=== PATIENT | female | born 1965 | race African-American/Black ===

== ENCOUNTER → 2017-07-21 | Outpatient (CLI) | payer MEDICAID ==
[~2017-07-21] MED LIST: AGM875T PO; ALBU8.5H2 IH; AMLO5TAB2 PO; AZIT500T PO; BSP10T PO; BUDE10.22 IH; BUSP15TA60 PO; CHANTIX; CLIN150C17 PO; CYAN5000 SL; CYCL10TA9 PO; DOCU100C37 PO; DOXY100T61 PO; ESTR1TAB18 PO; FAMO20TA5 PO; HYDR-757 PO; IBP800T PO; INDO50CA PO; IPRA3AMP19 IH; LANS30CA PO; LEVO750T6 PO; LRT10T PO; MULT-608 PO; NAPR-1070 PO; NAPR-243 PO; OMEP40CA36 PO; PARO30TA74 PO; POTA10CA43 PO; PRD10T PO; PRD20T PO; PRD50T PO; PRD5T PO; TRAZ150T42 PO; TRIA5PAS10 TOP; VARE1TAB19 PO; VARE1TAB22 PO; [UNRECOGNIZED DRUG - REMARK]; [UNRECOGNIZED DRUG - REMARK]; [UNRECOGNIZED DRUG - REMARK]
--- NOTE | 2017-07-22 18:31 | Diagnostic Imaging Report ---
Bilateral screening mammogram 2D views with tomosynthesis The current study was also evaluated with a Computer Aided Detection (CAD) system. Indication: Screening. No current complaints stated on the questionnaire. COMPARISON: 10/04/2015. FINDINGS: The breasts are composed of heterogeneously dense parenchyma which may decrease mammographic sensitivity. Scattered benign-appearing calcifications are seen. Allowing for technique and positional differences, no suspicious change is seen. IMPRESSION: No significant change. ACR BI-RADS Category 2: Benign findings. Result letter will be mailed to the patient. Note: At least 10% of breast cancer is not imaged by mammography. Dictated by: Dictated on workstation # [id number]
== END ==
LOC: RAD 12:48
PROVIDERS: ATTEND Nurse Practitioner Family
DX: Z12.31 Encounter for screening mammogram for malignant neoplasm of breast (principal)
CPT/HCPCS: 77067

== ENCOUNTER 2017-09-03 23:16 | Observation (INO) | payer MEDICAID ==
[~2017-09-03] VITALS: Ht 165.1 cm; Wt 78.0 kg
[2017-09-03] MEDS ORDERED: NS IV 1000 ML 1,000 ML IV ONE (23:22)
--- OUTSIDE RECORDS SUMMARY | 2017-09-03 23:25 | XMS REPORT ---
Author Author TAWANNA VELÁZQUEZ [facility] eClinicalWorks Address Unknown Phone Unavailable Care Team Providers Care Stoker Mechanic Name Role Phone TAWANNA VELÁZQUEZ Unavailable Allergies, Adverse Reactions, Alerts Substance Reaction Event Type Penicillin G Potassium Info Not Available Drug Allergy Problems Problem Type Condition Code Onset Dates Condition Status Problem Screening breast examination Z12.39 Active Problem GERD (gastroesophageal reflux disease) K21.9 Active Problem General medical exam Z00.00 Active Problem Pain in right shoulder M25.511 Active Assessment Chronic pain G89.29 Active Problem Chronic pain G89.29 Active Problem Chest wall pain R07.89 Active Problem Anxiety F41.9 Active Problem Low back pain M54.5 Active Problem Arthritis, low back M47.819 Active Problem Arthritis of neck M46.92 Active Problem Other chronic pain G89.29 Active Problem History of tobacco use Z87.891 Active Assessment Pain in right shoulder M25.511 Active Assessment Chest wall pain R07.89 Active Problem Essential hypertension, malignant I10 Active Problem Well female exam with routine gynecological exam Z01.419 Active Problem Ganglion, multiple sites M67.49 Active Problem Neck pain M54.2 Active Problem Asthma J45.909 Active Problem Post menopausal syndrome Z78.0 Active Medications Medication Code System Code Instructions Start Date End Date Status Dosage Omeprazole [facility] [address]-13 40 MG Orally Once a day 1 capsule Trazodone HCl [facility] 00257335713 150 MG 2 tablet at bedtime as needed Once a day Orally ProAir HFA [facility] [address]-80 108 (90 Base) MCG/ACT Inhalation every 4 hrs prn 2 puffs as needed Cyclobenzaprine HCl [facility] 15657475356 10 MG orally bid prn 1 tablet Clindamycin HCl [facility] [address]-88 450mg 3 times a day not defined Hydrocodone-Acetaminophen [facility] [address]-04 5-325 MG Orally hospital ED only not defined Naproxen [facility] [address]-49 550mg 2 times a day not defined Paxil [facility] 33751692211 30 MG 1 tablet in the morning Once a day Orally Amlodipine Besylate [facility] [address]-10 5 MG Orally Once a day 1 tablet Potassium Chloride ER [facility] 99857722677 10 MEQ 1 tablet Twice a day Orally Albuterol Sulfate [facility] [address]-97 (2.5 MG/3ML) 0.083% Inhalation every 8 hrs prn USE ONE VIAL IN NEBULIZER EVERY 4 HOURS NEEDED FOR COUGH AND WHEEZE Symbicort [facility] [address]-03 160-4.5 MCG/ACT Inhalation Twice a day 2 puffs Procedures Procedure Coding System Code Date CHEST X-RAY CPT-4 38413 December 12, 2015 X-RAY EXAM OF SHOULDER CPT-4 93440 December 12, 2015 MEASURE BLOOD OXYGEN LEVEL CPT-4 23445 December 12, 2015 THER/PROPH/DIAG INJ, SC/IM CPT-4 39435 December 12, 2015 TORADOL (IM) 15 MG/ML (UP TO 15 MG) CPT-4 J1885 December 12, 2015 Office Visit, Est Pt., Level 4 CPT-4 47849 December 12, 2015 Vital Signs Date/Time: December 12, 2015 Temperature 98.2 F Weight 185.6 lbs Height 66 in Oximetry 98 % Blood Pressure Diastolic 78 mmHg Blood Pressure Systolic 126 mmHg Cardiac Monitoring Heart Rate 100 bpm BMI 29.95 Index Results No Known Results Summary Purpose eClinicalWorks Submission
--- OUTSIDE RECORDS SUMMARY | 2017-09-03 23:25 | XMS REPORT ---
Author Author TAWANNA VELÁZQUEZ [facility] eClinicalWorks Address Unknown Phone Unavailable Care Team Providers Care Maintenance Scheduler Name Role Phone TAWANNA VELÁZQUEZ Unavailable Allergies, Adverse Reactions, Alerts Substance Reaction Event Type Penicillin G Potassium Info Not Available Drug Allergy Problems Problem Type Condition Code Onset Dates Condition Status Problem Asthma J45.909 Active Problem Well female exam with routine gynecological exam Z01.419 Active Problem Essential hypertension, malignant I10 Active Problem Low back pain M54.5 Active Assessment Post menopausal syndrome Z78.0 Active Problem GERD (gastroesophageal reflux disease) K21.9 Active Assessment Neck pain M54.2 Active Assessment Fatigue R53.83 Active Problem Anxiety F41.9 Active Problem Post menopausal syndrome Z78.0 Active Problem Neck pain M54.2 Active Problem General medical exam Z00.00 Active Problem Screening breast examination Z12.39 Active Assessment Low back pain M54.5 Active Assessment Asthma J45.909 Active Assessment Screening breast examination Z12.39 Active Assessment GERD (gastroesophageal reflux disease) K21.9 Active Assessment General medical exam Z00.00 Active Problem Other chronic pain G89.29 Active Assessment Essential hypertension, malignant I10 Active Problem History of tobacco use Z87.891 Active Assessment Well female exam with routine gynecological exam Z01.419 Active Problem Ganglion, multiple sites M67.49 Active Medications Medication Code System Code Instructions Start Date End Date Status Dosage Stool Softener [facility] [address]-34 100 MG Orally Once a day 1 capsule as needed Albuterol Sulfate [facility] [address]-37 (2.5 MG/3ML) 0.083% Inhalation every 8 hrs prn USE ONE VIAL IN NEBULIZER EVERY 4 HOURS NEEDED FOR COUGH AND WHEEZE Amlodipine Besylate [facility] [address]-02 5 MG Orally Once a day 1 tablet Nabumetone [facility] 09939019659 750 MG TAKE ONE TABLET 2 times a day Symbicort [facility] [address]-25 160-4.5 MCG/ACT Inhalation Twice a day 2 puffs ProAir HFA [facility] [address]-24 108 (90 Base) MCG/ACT Inhalation every 4 hrs prn 2 puffs as needed Potassium Chloride ER [facility] 77222938397 10 MEQ 1 tablet Twice a day Orally Omeprazole [facility] [address]-27 40 MG Orally Once a day 1 capsule Cyclobenzaprine HCl [facility] 70061771044 10 MG 1 tablet 2 times a day Orally BusPIRone HCl [facility] [address]-14 15 MG Orally Three times a day February 13, 2015 1 tablet Trazodone HCl [facility] [address]-35 150 MG Orally Once a day 2 tablet at bedtime as needed Paxil [facility] 14459056869 30 MG 1 tablet in the morning Once a day Orally Procedures Procedure Coding System Code Date THER/PROPH/DIAG INJ, SC/IM CPT-4 10446 Sep 05, 2015 COMPLETE CBC W/AUTO DIFF WBC CPT-4 78155 Sep 05, 2015 ASSAY THYROID STIM HORMONE CPT-4 25466 Sep 05, 2015 COMPREHEN METABOLIC PANEL CPT-4 80147 Sep 05, 2015 VENIPUNCT, ROUTINE* CPT-4 20201 Sep 05, 2015 SPECIMEN HANDLING CPT-4 97039 Sep 05, 2015 TORADOL (IM) 15 MG/ML (UP TO 15 MG) CPT-4 J1885 Sep 05, 2015 X-RAY EXAM OF LOWER SPINE CPT-4 45956 Sep 05, 2015 LIPID PANEL CPT-4 23765 Sep 05, 2015 Office Visit, Est Pt., Level 4 CPT-4 37471 Sep 05, 2015 Preventive Care Est Pt. Age 40-64 CPT-4 70103 Sep 05, 2015 Vital Signs Date/Time: Sep 05, 2015 Temperature 97.6 F Weight 182.1 lbs Height 66 in BMI 29.39 Index Blood Pressure Diastolic 62 mmHg Blood Pressure Systolic 98 mmHg Cardiac Monitoring Heart Rate 92 bpm Results Name Result Date Reference Range Unit Abnormality Flag ROUTINE VENIPUNCTURE PDF Report ----PDF Report1 [facility] [id number] Summary Purpose eClinicalWorks Submission
--- OUTSIDE RECORDS SUMMARY | 2017-09-03 23:25 | XMS REPORT ---
Author Author TAWANNA VELÁZQUEZ Organization eClinicalWorks Address Unknown Phone Unavailable Care Team Providers Care Financial Institution Vice President Name Role Phone TAWANNA VELÁZQUEZ CP Unavailable Allergies No Known Allergies Problems Problem Type Condition Code Onset Dates Condition Status Problem Low back pain M54.5 Active Problem Arthritis of neck M46.92 Active Problem Anxiety F41.9 Active Problem Infected tooth K04.7 Active Problem Other chronic pain G89.29 Active Problem High risk sexual behavior Z72.51 Active Problem Left foot pain M79.672 Active Problem Chronic pain G89.29 Active Problem Arthritis, low back M47.819 Active Problem Chest wall pain R07.89 Active Problem Pain in right shoulder M25.511 Active Problem Asthma J45.909 Active Problem Essential hypertension, malignant I10 Active Problem History of tobacco use Z87.891 Active Problem Ganglion, multiple sites M67.49 Active Problem Post menopausal syndrome Z78.0 Active Problem Screening breast examination Z12.39 Active Problem Well female exam with routine gynecological exam Z01.419 Active Problem General medical exam Z00.00 Active Problem Neck pain M54.2 Active Problem GERD (gastroesophageal reflux disease) K21.9 Active Medications Medication Code System Code Instructions Start Date End Date Status Dosage Potassium Chloride ER [facility] 93012930841 10 MEQ Orally Twice a day 1 tablet with food Results No Known Results Summary Purpose eClinicalWorks Submission
--- OUTSIDE RECORDS SUMMARY | 2017-09-03 23:25 | XMS REPORT ---
Author Author TAWANNA VELÁZQUEZ [facility] Address [address] [place] [address] Care Team Providers Care Radiotelephone Operator Name Role Phone MYKELMassimo TAWANNA Unavailable PROBLEMS Type Condition ICD9-CM Code [id number] Code Onset Dates Condition Status SNOMED Code Problem History of tobacco use Z87.891 Active 5322489386873 Problem Arthritis of neck M46.92 Active 082180847 Problem Asthma J45.909 Active 810970570 Problem Chronic pain G89.29 Active 68132967 Problem Ganglion, multiple sites M67.49 Active 515553596 Problem Pain in right shoulder M25.511 Active 65875135 Problem High risk sexual behavior Z72.51 Active 697607896 Problem Chest wall pain R07.89 Active 958041675 Problem Primary insomnia F51.01 Active 5548349 Problem Vitamin D deficiency E55.9 Active 18542609 Problem Post menopausal syndrome Z78.0 Active 47491854 Problem Essential hypertension, malignant I10 Active 80598101 Problem Other chronic pain G89.29 Active 228540913 Problem Infected tooth K04.7 Active 452882223 Problem Left foot pain M79.672 Active 44924330 Problem Depression with anxiety F41.8 Active 010028420 Problem Poverty status Z59.6 Active 66843854 Problem GERD (gastroesophageal reflux disease) K21.9 Active 710159164 Problem Anxiety F41.9 Active 67811850 Problem General medical exam Z00.00 Active 647875249 Problem Well female exam with routine gynecological exam Z01.419 Active 585571188 Problem Neck pain M54.2 Active 34492732 Problem Arthritis, low back M47.819 Active 881836421 Problem Low back pain M54.5 Active 100154113 Problem Screening breast examination Z12.39 Active 107383869 ALLERGIES Substance Reaction Event Type Date Status Penicillin G Potassium Unknown Drug Allergy Aug, Active SOCIAL HISTORY No smoking Hx information available PLAN OF CARE Activity Details Follow Up 4 Weeks Reason:Annual/breast exam/arthritis VITAL SIGNS Height 66 in 2016-09-10 Weight 177.8 lbs 2016-09-10 Temperature 97.7 degrees Fahrenheit 2016-09-10 Heart Rate 76 bpm 2016-09-10 Respiratory Rate 20 2016-09-10 BMI 28.69 kg/m2 2016-09-10 Blood pressure systolic 110 mmHg 2016-09-10 Blood pressure diastolic 78 mmHg 2016-09-10 MEDICATIONS Medication Instructions Dosage Frequency Start Date End Date Duration Status BusPIRone HCl 15 MG 1 tablet Three times a day Orally Active Symbicort 160-4.5 MCG/ACT Inhalation Twice a day 2 puffs 12h Active Albuterol Sulfate (2.5 MG/3ML) 0.083% Inhalation every 4-6 hrs prn USE ONE VIA IN NEB 30 days Active Omeprazole 40 MG Orally Once a day 1 capsule 24h Active Trazodone HCl 150 MG 2 tablet at bedtime as needed Once a day Orally 7 Active Cyclobenzaprine HCl 10 mg Orally 2 times a day prn 1 tablet Active ProAir HFA 108 (90 Base) MCG/ACT Inhalation every 4 hrs prn 2 puffs as needed Active Potassium Chloride ER 10 MEQ orally once daily 1 tablet 24h 30 Active Paxil 30 MG 1 tablet in the morning Once a day Orally Active Indomethacin 50 MG Orally Twice a day 1 capsule with food or milk 12h 18 Aug, 2016 17 Sep, 2016 30 day(s) Active Amlodipine Besylate 5 mg Orally Once a day 1 tablet 24h Active Cyclobenzaprine HCl 10 MG TAKE ONE TABLET BY MOUTH TWICE DAILY NEEDED 7 Active RESULTS Name Result Date Reference Range [facility] 2016-09-10 Glucose, Serum 85 65-99 BUN 9 6-24 Creatinine, Serum 0.53 0.57-1.00 eGFR If NonAfricn Am 110 >59 eGFR If Africn Am 127 >59 BUN/Creatinine Ratio 17 9-23 Sodium, Serum 145 134-144 Potassium, Serum 4.2 3.5-5.2 Chloride, Serum 104 96-106 Carbon Dioxide, Total 27 18-29 Calcium, Serum 9.1 8.7-10.2 Protein, Total, Serum 6.5 6.0-8.5 Albumin, Serum 3.9 3.5-5.5 Globulin, Total 2.6 1.5-4.5 A/G Ratio 1.5 1.1-2.5 Bilirubin, Total <0.2 0.0-1.2 Alkaline Phosphatase, S 90 39-117 AST (SGOT) 13 0-40 ALT (SGPT) 10 0-32 PROCEDURES Procedure Date Ordered Related Diagnosis Body Site Office Visit, Est Pt., Level 4 Sep 10, 2016 LAB NOT BILLED BY [facility] Sep 10, 2016 SINGLE IMMUNIZATION ADMIN Sep 10, 2016 FLUARIX QUAD P-FREE 3 AND UP .50 2015Sep 10, 2016 VENIPUNCT, ROUTINE* Sep 10, 2016 IMMUNIZATIONS Vaccine Route Administration Date Status FLUARIX QUAD P-FREE 3 AND UP .50 2015 IM Intramuscular Sep 10, 2016 Administered
--- OUTSIDE RECORDS SUMMARY | 2017-09-03 23:25 | XMS REPORT ---
Author Author TAWANNA VELÁZQUEZ Organization eClinicalWorks Address Unknown Phone Unavailable Care Team Providers Care Box Attacher Name Role Phone TAWANNA VELÁZQUEZ CP Unavailable Allergies No Known Allergies Problems Problem Type Condition Code Onset Dates Condition Status Problem Screening breast examination Z12.39 Active Problem GERD (gastroesophageal reflux disease) K21.9 Active Problem General medical exam Z00.00 Active Problem Pain in right shoulder M25.511 Active Problem Chronic pain G89.29 Active Problem Chest wall pain R07.89 Active Problem Anxiety F41.9 Active Problem Low back pain M54.5 Active Problem Arthritis, low back M47.819 Active Problem Arthritis of neck M46.92 Active Problem Other chronic pain G89.29 Active Problem History of tobacco use Z87.891 Active Problem Essential hypertension, malignant I10 Active Problem Well female exam with routine gynecological exam Z01.419 Active Problem Ganglion, multiple sites M67.49 Active Problem Neck pain M54.2 Active Problem Asthma J45.909 Active Problem Post menopausal syndrome Z78.0 Active Medications No Known Medications Results No Known Results Summary Purpose eClinicalWorks Submission
--- OUTSIDE RECORDS SUMMARY | 2017-09-03 23:26 | XMS REPORT ---
Author Author TAWANNA VELÁZQUEZ Organization eClinicalWorks Address Unknown Phone Unavailable Care Team Providers Care Director Of Corporate Real Estate Name Role Phone TAWANNA VELÁZQUEZ CP Unavailable [...] Instructions Start Date End Date Status Dosage Cyclobenzaprine HCl [facility] [address]-51 10 mg must keep appt 03/25/16 Mar 28, 2016 TAKE ONE TABLET BY MOUTH TWICE DAILY NEEDED FOR Amlodipine Besylate [facility] 54886239656 5 MG 1 tablet Once a day Orally Results No Known Results Summary Purpose eClinicalWorks Submission
--- OUTSIDE RECORDS SUMMARY | 2017-09-03 23:26 | XMS REPORT ---
Author Author TAWANNA VELÁZQUEZ [facility] Address [address] [place] [address] Care Team Providers Care Awake Overnight Counselor Name Role Phone MYKELMassimo TAWANNA Unavailable PROBLEMS Type Condition ICD9-CM Code IUP05-CZ Code Onset Dates Condition Status SNOMED Code Problem History of tobacco use Z87.891 Active 5025659511005 Problem Arthritis of neck M46.92 Active 197407670 Problem Asthma J45.909 Active 719018365 Problem Chronic pain G89.29 Active 07222597 Problem Ganglion, multiple sites M67.49 Active 155213672 Problem Pain in right shoulder M25.511 Active 84548164 Problem High risk sexual behavior Z72.51 Active 153447522 Problem Chest wall pain R07.89 Active 918400621 Problem Primary insomnia F51.01 Active 4339621 Problem Vitamin D deficiency E55.9 Active 69843278 Problem Post menopausal syndrome Z78.0 Active 45771101 Problem Essential hypertension, malignant I10 Active 00915280 Problem Other chronic pain G89.29 Active 417087788 Problem Infected tooth K04.7 Active 271884358 Problem Left foot pain M79.672 Active 02198372 Problem Depression with anxiety F41.8 Active 186760348 Problem Poverty status Z59.6 Active 48725685 Problem GERD (gastroesophageal reflux disease) K21.9 Active 173362884 Problem Anxiety F41.9 Active 36041142 Problem General medical exam Z00.00 Active 496708260 Problem Well female exam with routine gynecological exam Z01.419 Active 370568550 Problem Neck pain M54.2 Active 90536904 Problem Arthritis, low back M47.819 Active 825798888 Problem Low back pain M54.5 Active 262830130 Problem Screening breast examination Z12.39 Active 774418023 ALLERGIES No Information SOCIAL HISTORY Never Assessed PLAN OF CARE VITAL SIGNS MEDICATIONS Medication Instructions Dosage Frequency Start Date End Date Duration Status Ondansetron 8 MG Orally every 8 hours 1 tablet 8h Sep, Active RESULTS No Results PROCEDURES No Known procedures IMMUNIZATIONS No Known Immunizations MEDICAL (GENERAL) HISTORY Type Description Date Medical History asthma Medical History hernia Medical History depression-sees [facility] Medical History anxiety-sees [facility] at [facility] Medical History ulcers Medical History Hypertension Medical History arthritis Medical History Homeless with History Drug Abuse Clean since 2013 Surgical History cholecystectomy 07/1994 Surgical History hernia repair Surgical History hysterectomy Surgical History peptic ulcer surgery Surgical History Colonoscopy 2015 Hospitalization History pneumonia 06/2010 Hospitalization History pneumonia, asthma vs COPD, hilar lymphadenopathy 2010 Hospitalization History ulcer/hypokalemia 10/2014 Hospitalization History heart attack
--- OUTSIDE RECORDS SUMMARY | 2017-09-03 23:26 | XMS REPORT ---
Author Author TAWANNA VELÁZQUEZ Organization eClinicalWorks Address Unknown Phone Unavailable Care Team Providers Care Support Coordinator Name Role Phone TAWANNA VELÁZQUEZ CP Unavailable Allergies No Known Allergies Problems Problem Type Condition ICD-9 Code Onset Dates Condition Status Problem Other chronic pain 338.29 Active Problem Asthma, unspecified, with (acute) exacerbation 493.92 Active Problem Other specified counseling V65.49 Active Problem Essential hypertension, malignant 401.0 Active Problem Pain in joint, site unspecified 719.40 Active Problem Personal history of tobacco use, presenting hazards to health V15.82 Active Problem Spasm of muscle 728.85 Active Problem Other ganglion and cyst of synovium, tendon, and bursa 727.49 Active Medications No Known Medications Results No Known Results Summary Purpose eClinicalWorks Submission
--- OUTSIDE RECORDS SUMMARY | 2017-09-03 23:26 | XMS REPORT ---
Author Author TAWANNA VELÁZQUEZ Organization eClinicalWorks Address Unknown Phone Unavailable Care Team Providers Care Balancing Machine Operator Name Role Phone TAWANNA VELÁZQUEZ CP Unavailable [...] synovium, tendon, and bursa 727.49 Active Medications Medication Code System Code Instructions Start Date End Date Status Dosage Amlodipine Besylate [facility] [address]-23 5 MG Orally Once a day 1 tablet Paxil [facility] [address]-01 30 MG Orally Once a day March 16, 2015 1 tablet in the morning Omeprazole [facility] [address]-00 40 MG Orally Once a day 1 capsule ProAir HFA [facility] [address]-70 108 (90 Base) MCG/ACT Inhalation every 4 hrs prn 2 puffs as needed Potassium Chloride ER [facility] [address]-78 10 MEQ Orally Twice a day February 13, 2015 1 tablet Nabumetone [facility] [address]-50 750 MG 2 times a day TAKE ONE TABLET Trazodone HCl [facility] [address]-72 150 MG Orally Once a day 2 tablet at bedtime as needed Symbicort [facility] [address]-22 160-4.5 MCG/ACT Inhalation Twice a day 2 puffs BusPIRone HCl [facility] [address]-00 15 MG Orally Three times a day February 13, 2015 1 tablet Cyclobenzaprine HCl [facility] [address]-64 10 MG Orally 2 times a day 1 tablet Results No Known Results Summary Purpose eClinicalWorks Submission
--- OUTSIDE RECORDS SUMMARY | 2017-09-03 23:26 | XMS REPORT ---
Author Author TAWANNA VELÁZQUEZ [facility] Address [address] [place] [address] Care Team Providers Care Waste Paper Hammermill Operator Name Role Phone MYKELMassimo TAWANNA Unavailable PROBLEMS Type Condition ICD9-CM Code OYV99-AO Code Onset Dates Condition Status SNOMED Code Problem History of tobacco use Z87.891 Active 2266852517668 Problem Arthritis of neck M46.92 Active 017100640 Problem Asthma J45.909 Active 254309623 Problem Chronic pain G89.29 Active 20016574 Problem Ganglion, multiple sites M67.49 Active 866488969 Problem Pain in right shoulder M25.511 Active 85538205 Problem High risk sexual behavior Z72.51 Active 205285313 Problem Chest wall pain R07.89 Active 888926160 Problem Primary insomnia F51.01 Active 8631024 Problem Vitamin D deficiency E55.9 Active 08724714 Problem Post menopausal syndrome Z78.0 Active 16650213 Problem Essential hypertension, malignant I10 Active 18582906 Problem Other chronic pain G89.29 Active 442239461 Problem Infected tooth K04.7 Active 255049890 Problem Left foot pain M79.672 Active 86696542 Problem Depression with anxiety F41.8 Active 783296088 Problem Poverty status Z59.6 Active 77088353 Problem GERD (gastroesophageal reflux disease) K21.9 Active 600792669 Problem Anxiety F41.9 Active 18999440 Problem General medical exam Z00.00 Active 592703065 Problem Well female exam with routine gynecological exam Z01.419 Active 770843740 Problem Neck pain M54.2 Active 27623830 Problem Arthritis, low back M47.819 Active 663800602 Problem Low back pain M54.5 Active 154518962 Problem Screening breast examination Z12.39 Active 378458264 ALLERGIES Unknown Allergies SOCIAL HISTORY No smoking Hx information available PLAN OF CARE VITAL SIGNS MEDICATIONS Medication Instructions Dosage Frequency Start Date End Date Duration Status Trazodone HCl 150 MG 2 tablet at bedtime as needed Once a day Orally 7 Active RESULTS No Results PROCEDURES No Known procedures IMMUNIZATIONS No Known Immunizations
--- OUTSIDE RECORDS SUMMARY | 2017-09-03 23:26 | XMS REPORT ---
Author Author TAWANNA VELÁZQUEZ [facility] eClinicalWorks Address Unknown Phone Unavailable Care Team Providers Care Metrologist Name Role Phone TAWANNA VELÁZQUEZ Unavailable Allergies, Adverse Reactions, Alerts Substance Reaction Event Type Penicillin G Potassium Info Not Available Drug Allergy Problems Problem Type Condition Code Onset Dates Condition Status Assessment High risk sexual behavior Z72.51 Active Assessment Infected tooth K04.7 Active Assessment Left foot pain M79.672 Active Assessment Essential hypertension, malignant I10 Active Problem General medical exam Z00.00 Active Assessment Asthma J45.909 Active Problem GERD (gastroesophageal reflux disease) K21.9 Active Assessment GERD (gastroesophageal reflux disease) K21.9 Active Problem Low back pain M54.5 Active Problem Arthritis of neck M46.92 Active Problem Anxiety F41.9 Active Problem Infected tooth K04.7 Active Problem High risk sexual behavior Z72.51 Active Problem Other chronic pain G89.29 Active Assessment Arthritis, low back M47.819 Active Problem Left foot pain M79.672 Active Assessment Arthritis of neck M46.92 Active Problem Chronic pain G89.29 Active Problem [...] with routine gynecological exam Z01.419 Active Problem Neck pain M54.2 Active Medications Medication Code System Code Instructions Start Date End Date Status Dosage BusPIRone HCl [facility] 18382148801 15 MG 1 tablet Three times a day Orally Paxil [facility] 65404027825 30 MG 1 tablet in the morning Once a day Orally Albuterol Sulfate [facility] [address]-81 (2.5 MG/3ML) 0.083% Inhalation every 4- 6 hrs prn USE ONE VIA IN NEB Symbicort [facility] 42796566900 160-4.5 MCG/ACT Inhalation Twice a day 2 puffs Cyclobenzaprine HCl [facility] [address]-23 10 mg Orally 2 times a day prn 1 tablet Naproxen [facility] [address]-30 550mg 2 times a day not defined Keflex [facility] [address]-94 500 MG Orally 3 times a day Mar 25, 2016 Apr 04, 2016 1 capsule Potassium Chloride ER [facility] 12460048575 10 MEQ TAKE ONE TABLET BY MOUTH TWICE DAILY ProAir HFA [facility] [address]-88 108 (90 Base) MCG/ACT Inhalation every 4 hrs prn 2 puffs as needed Amlodipine Besylate [facility] [address]-04 5 mg Orally Once a day 1 tablet Trazodone HCl [facility] 59177190096 150 MG MUST KEEP APPT 816 2 tablet at bedtime as needed Once a day Orally Omeprazole [facility] [address]-86 40 MG Orally Once a day 1 capsule Procedures Procedure Coding System Code Date X-RAY EXAM OF FOOT CPT-4 64629 Mar 25, 2016 CHEST X-RAY CPT-4 50932 Mar 25, 2016 [facility] NOBLL Mar 25, 2016 Office Visit, Est Pt., Level 5 CPT-4 74415 Mar 25, 2016 No Charge CPT-4 05523 Mar 25, 2016 VENIPUNCT, ROUTINE* CPT-4 33483 Mar 25, 2016 Vital Signs Date/Time: Mar 25, 2016 Cardiac Monitoring Heart Rate 86 bpm Weight 178.0 lbs Height 66 in BMI 28.73 Index Blood Pressure Diastolic 80 mmHg Blood Pressure Systolic 120 mmHg Results No Known Results Summary Purpose eClinicalWorks Submission
--- OUTSIDE RECORDS SUMMARY | 2017-09-03 23:26 | XMS REPORT ---
Author Author TAWANNA VELÁZQUEZ [facility] [address] Address [address] [place] [address] Care Team Providers Care Call Or Contact Centre Manager Name Role Phone MYKELMassimo TAWANNA Unavailable PROBLEMS Type Condition ICD9-CM Code [id number] Code Onset Dates Condition Status SNOMED Code Problem History of tobacco use Z87.891 Active 9335313392243 Problem Arthritis of neck M46.92 Active 867854574 Problem Asthma J45.909 Active 670810045 Problem Chronic pain G89.29 Active 29560864 Problem Ganglion, multiple sites M67.49 Active 898754022 Problem Pain in right shoulder M25.511 Active 06709843 Problem High risk sexual behavior Z72.51 Active 947493436 Problem Chest wall pain R07.89 Active 488897808 Problem Primary insomnia F51.01 Active 2602264 Problem Vitamin D deficiency E55.9 Active 95617957 Problem Post menopausal syndrome Z78.0 Active 16781794 Problem Essential hypertension, malignant I10 Active 32348212 Problem Other chronic pain G89.29 Active 876978325 Problem Infected tooth K04.7 Active 628320932 Problem Left foot pain M79.672 Active 00676090 Problem Depression with anxiety F41.8 Active 413102296 Problem Poverty status Z59.6 Active 26371191 Problem GERD (gastroesophageal reflux disease) K21.9 Active 959173157 Problem Anxiety F41.9 Active 86987394 Problem General medical exam Z00.00 Active 809614133 Problem Well female exam with routine gynecological exam Z01.419 Active 265899744 Problem Neck pain M54.2 Active 06003004 Problem Arthritis, low back M47.819 Active 811729744 Problem Low back pain M54.5 Active 504609204 Problem Screening breast examination Z12.39 Active 996751299 ALLERGIES Unknown Allergies SOCIAL HISTORY No smoking Hx information available PLAN OF CARE VITAL SIGNS MEDICATIONS Unknown Medications RESULTS No Results PROCEDURES No Known procedures IMMUNIZATIONS No Known Immunizations
--- OUTSIDE RECORDS SUMMARY | 2017-09-03 23:26 | XMS REPORT ---
Author Author TAWANNA VELÁZQUEZ [facility] eClinicalWorks Address Unknown Phone Unavailable Care Team Providers Care Buggy Loader Name Role Phone TAWANNA VELÁZQUEZ CP Unavailable Allergies No Known Allergies Problems Problem Type Condition Code Onset Dates Condition Status Problem Asthma J45.909 Active Problem Well female exam with routine gynecological exam Z01.419 Active Problem Essential hypertension, malignant I10 Active Problem Low back pain M54.5 Active Problem GERD (gastroesophageal reflux disease) K21.9 Active Problem Anxiety F41.9 Active Problem Post menopausal syndrome Z78.0 Active Problem Neck pain M54.2 Active Problem General medical exam Z00.00 Active Problem Screening breast examination Z12.39 Active Problem Other chronic pain G89.29 Active Problem History of tobacco use Z87.891 Active Problem Ganglion, multiple sites M67.49 Active Medications No Known Medications Results No Known Results Summary Purpose eClinicalWorks Submission
--- OUTSIDE RECORDS SUMMARY | 2017-09-03 23:27 | XMS REPORT ---
Author Author TAWANNA VELÁZQUEZ Organization [employer] Address Unknown Phone Unavailable Care Team Providers Care School Bus Driver/Custodian Name Role Phone TAWANNA VELÁZQUEZ CP Unavailable [...] Instructions Start Date End Date Status Dosage Trazodone HCl [facility] 17820741983 150 MG MUST KEEP APPT 03/25/16 2 tablet at bedtime as needed Once a day Orally Results No Known Results Summary Purpose eClinicalWorks Submission
--- OUTSIDE RECORDS SUMMARY | 2017-09-03 23:27 | XMS REPORT ---
Author Author TAWANNA VELÁZQUEZ [facility] eClinicalWorks Address Unknown Phone Unavailable Care Team Providers Care Belt Maker Helper Name Role Phone TAWANNA VELÁZQUEZ CP Unavailable [...] Active Assessment Low back pain M54.5 Active Problem Other chronic pain G89.29 Active Problem History of tobacco use Z87.891 Active Assessment Neck pain M54.2 Active Problem Ganglion, multiple sites M67.49 Active Medications No Known Medications Procedures Procedure Coding System Code Date X-RAY EXAM OF NECK SPINE CPT-4 70649 Sep 10, 2015 X-RAY EXAM OF LOWER SPINE CPT-4 63194 Sep 10, 2015 Results No Known Results Summary Purpose eClinicalWorks Submission
--- OUTSIDE RECORDS SUMMARY | 2017-09-03 23:27 | XMS REPORT ---
Author Author TAWANNA VELÁZQUEZ [facility] Address [address] [place] [address] Care Team Providers Care Telephone Messenger Name Role Phone MYKELMassimo TAWANNA Unavailable PROBLEMS Type Condition ICD9-CM Code [id number] Code Onset Dates Condition Status SNOMED Code Problem History of tobacco use Z87.891 Active 4333584849574 Problem Arthritis of neck M46.92 Active 318870286 Problem Asthma J45.909 Active 165872568 Problem Chronic pain G89.29 Active 84455886 Problem Ganglion, multiple sites M67.49 Active 957667772 Problem Pain in right shoulder M25.511 Active 96363497 Problem High risk sexual behavior Z72.51 Active 158921140 Problem Chest wall pain R07.89 Active 227469507 Problem Primary insomnia F51.01 Active 8724964 Problem Vitamin D deficiency E55.9 Active 10951297 Problem Post menopausal syndrome Z78.0 Active 84489003 Problem Essential hypertension, malignant I10 Active 49360302 Problem Other chronic pain G89.29 Active 017204250 Problem Infected tooth K04.7 Active 291217714 Problem Left foot pain M79.672 Active 39449024 Problem Depression with anxiety F41.8 Active 398464730 Problem Poverty status Z59.6 Active 93573606 Problem GERD (gastroesophageal reflux disease) K21.9 Active 731972323 Problem Anxiety F41.9 Active 33601349 Problem General medical exam Z00.00 Active 954696365 Problem Well female exam with routine gynecological exam Z01.419 Active 159822117 Problem Neck pain M54.2 Active 69169663 Problem Arthritis, low back M47.819 Active 618062003 Problem Low back pain M54.5 Active 484017798 Problem Screening breast examination Z12.39 Active 362535476 ALLERGIES No Information SOCIAL HISTORY Never Assessed PLAN OF CARE VITAL SIGNS MEDICATIONS Medication Instructions Dosage Frequency Start Date End Date Duration Status Cholecalciferol 48886 UNIT Orally once weekly 1 capsule Oct, Jan, 12 Weeks Active RESULTS No Results PROCEDURES No Known procedures IMMUNIZATIONS No Known Immunizations MEDICAL (GENERAL) HISTORY Type Description Date Medical History asthma Medical History hernia Medical History depression-sees Catherine at [facility] Medical History anxiety-sees Catherine at [facility] Medical History ulcers Medical History Hypertension [...]
--- OUTSIDE RECORDS SUMMARY | 2017-09-03 23:27 | XMS REPORT ---
Author Author TAWANNA VELÁZQUEZ [facility] eClinicalWorks Address Unknown Phone Unavailable Care Team Providers Care Lead Athlete Name Role Phone TAWANNA VELÁZQUEZ Unavailable Allergies, Adverse Reactions, Alerts Substance Reaction Event Type Penicillin G Potassium Info Not Available Drug Allergy Problems Problem Type Condition ICD-9 Code Onset Dates Condition Status Assessment Arthritis of neck 721.0 Active Problem Other chronic pain 338.29 Active Assessment Joint pain 719.40 Active Assessment Leg cramping 729.82 Active Problem Asthma, unspecified, with (acute) exacerbation [...] Instructions Start Date End Date Status Dosage ProAir HFA [facility] [address]-06 108 (90 Base) MCG/ACT Inhalation every 4 hrs prn 2 puffs as needed PredniSONE [facility] [address]-92 10 MG Orally Twice a day Apr 11, 2015Mar 1 tablet with food or milk Amlodipine Besylate [facility] [address]-94 5 MG Orally Once a day 1 tablet Trazodone HCl [facility] [address]-38 150 MG Orally Once a day 2 tablet at bedtime as needed Symbicort [facility] [address]-90 160-4.5 MCG/ACT Inhalation Twice a day Sep 20, 2015 2 puffs Cyclobenzaprine HCl [facility] [address]-98 10 MG Orally 2 times a day Apr 1 tablet Albuterol Sulfate [facility] [address]-79 (2.5 MG/3ML) 0.083% Inhalation every 8 hrs prn USE ONE VIAL IN NEBULIZER EVERY 4 HOURS NEEDED FOR COUGH AND WHEEZE Potassium Chloride ER [facility] [address]-82 10 MEQ Orally Twice a day February 13, 2015 1 tablet Paxil [facility] [address]-73 30 MG Orally Once a day March 16, 2015 1 tablet in the morning Omeprazole [facility] [address]-34 40 MG Orally Once a day 1 capsule Nabumetone [facility] 25401680825 750 MG TAKE ONE TABLET BY MOUTH TWICE DAILY BusPIRone HCl [facility] [address]-33 15 MG Orally Three times a day February 13, 2015 1 tablet Procedures Procedure Coding System Code Date RBC SED RATE, AUTOMATED CPT-4 70320 Apr 11, 2015 C-REACTIVE PROTEIN CPT-4 25661 Apr 11, 2015 RHEUMATOID FACTOR, QUANT CPT-4 88315 Apr 11, 2015 VENIPUNCT, ROUTINE* CPT-4 27328 Apr 11, 2015 COMPLETE CBC W/AUTO DIFF WBC CPT-4 73706 Apr 11, 2015 COMPREHEN METABOLIC PANEL CPT-4 34121 Apr 11, 2015 Office Visit, Est Pt., Level 4 CPT-4 44326 Apr 11, 2015 ANTINUCLEAR ANTIBODIES CPT-4 18499 Apr 11, 2015 Vital Signs Date/Time: Apr 11, 2015 Temperature 97.8 F Weight 176 lb 4 oz lbs Height 66 in BMI 28.44 Index Blood Pressure Diastolic 62 mmHg Blood Pressure Systolic 106 mmHg Cardiac Monitoring Heart Rate 96 bpm Results Name Result Date Reference Range Unit Abnormality Flag ROUTINE VENIPUNCTURE CBC Summary Purpose eClinicalWorks Submission
--- OUTSIDE RECORDS SUMMARY | 2017-09-03 23:27 | XMS REPORT ---
Author Author TAWANNA VELÁZQUEZ [facility] Address [address] [place] [address] Care Team Providers Care Wood Turner Name Role Phone MYKELMassimo TAWANNA Unavailable PROBLEMS Type Condition ICD9-CM Code [id number]-BK Code Onset Dates Condition Status SNOMED Code Problem History of tobacco use Z87.891 Active 5285576695347 Problem Arthritis of neck M46.92 Active 956638069 Problem Asthma J45.909 Active 352816460 Problem Chronic pain G89.29 Active 57605356 Problem Ganglion, multiple sites M67.49 Active 944187859 Problem Pain in right shoulder M25.511 Active 30293005 Problem High risk sexual behavior Z72.51 Active 710281144 Problem Chest wall pain R07.89 Active 990620935 Problem Primary insomnia F51.01 Active 1469443 Problem Vitamin D deficiency E55.9 Active 52400275 Problem Post menopausal syndrome Z78.0 Active 57146024 Problem Essential hypertension, malignant I10 Active 82528769 Problem Other chronic pain G89.29 Active 310275298 Problem Infected tooth K04.7 Active 572439742 Problem Left foot pain M79.672 Active 42160766 Problem Depression with anxiety F41.8 Active 715204899 Problem Poverty status Z59.6 Active 21629673 Problem GERD (gastroesophageal reflux disease) K21.9 Active 657360847 Problem Anxiety F41.9 Active 14904281 Problem General medical exam Z00.00 Active 574076162 Problem Well female exam with routine gynecological exam Z01.419 Active 487515353 Problem Neck pain M54.2 Active 91394205 Problem Arthritis, low back M47.819 Active 627660698 Problem Low back pain M54.5 Active 740308806 Problem Screening breast examination Z12.39 Active 693496350 ALLERGIES No Information SOCIAL HISTORY Never Assessed PLAN OF CARE VITAL SIGNS MEDICATIONS Medication Instructions Dosage Frequency Start Date End Date Duration Status Cholecalciferol 04626 UNIT Orally Once a day 1 capsule 24h Oct, Jan, 12 weeks Active Pravastatin Sodium 20 mg Orally Once a day 1 tablet 24h Oct, 30 day(s) Active RESULTS No Results PROCEDURES No Known procedures IMMUNIZATIONS No Known Immunizations MEDICAL (GENERAL) HISTORY Type Description Date Medical History asthma Medical History hernia Medical History depression-sees Catherine at [facility] Medical History anxiety-sees Catherine at [facility] Medical History ulcers Medical History [...]
--- OUTSIDE RECORDS SUMMARY | 2017-09-03 23:27 | XMS REPORT ---
Author Author TAWANNA VELÁZQUEZ Organization [facility] Address [address] [place] [address] Care Team Providers Care Churn Operator Name Role Phone MYKELMassimo TAWANNA Unavailable PROBLEMS Type Condition ICD9-CM Code [id number] Code Onset Dates Condition Status SNOMED Code Problem History of tobacco use Z87.891 Active 7498727686724 Problem Arthritis of neck M46.92 Active 806532027 Problem Asthma J45.909 Active 965932283 Problem Chronic pain G89.29 Active 29240511 Problem Ganglion, multiple sites M67.49 Active 662772887 Problem Pain in right shoulder M25.511 Active 55855654 Problem High risk sexual behavior Z72.51 Active 673201075 Problem Chest wall pain R07.89 Active 199207510 Problem Primary insomnia F51.01 Active 4441923 Problem Vitamin D deficiency E55.9 Active 20019070 Problem Post menopausal syndrome Z78.0 Active 63179384 Problem Essential hypertension, malignant I10 Active 57521563 Problem Other chronic pain G89.29 Active 590452134 Problem Infected tooth K04.7 Active 591611039 Problem Left foot pain M79.672 Active 51736235 Problem Depression with anxiety F41.8 Active 786008572 Problem Poverty status Z59.6 Active 10029381 Problem GERD (gastroesophageal reflux disease) K21.9 Active 139691182 Problem Anxiety F41.9 Active 65741418 Problem General medical exam Z00.00 Active 581034280 Problem Well female exam with routine gynecological exam Z01.419 Active 495078878 Problem Neck pain M54.2 Active 35573667 Problem Arthritis, low back M47.819 Active 608847253 Problem Low back pain M54.5 Active 740318787 Problem Screening breast examination Z12.39 Active 080443472 ALLERGIES Substance Reaction Event Type Date Status Penicillin G Potassium Unknown Drug Allergy Oct, Active SOCIAL HISTORY Never Assessed PLAN OF CARE Activity Details Follow Up 3-4 weeks Reason:stomach/Lab/arthritis VITAL SIGNS Height 66 in 2016-11-05 Weight 179.3 lbs 2016-11-05 Temperature 99.2 degrees Fahrenheit 2016-11-05 Heart Rate 78 bpm 2016-11-05 Respiratory Rate 22 2016-11-05 BMI 28.94 kg/m2 2016-11-05 Blood pressure systolic 124 mmHg 2016-11-05 Blood pressure diastolic 72 mmHg 2016-11-05 MEDICATIONS Medication Instructions Dosage Frequency Start Date End Date Duration Status Amlodipine Besylate 5 mg Orally Once a day 1 tablet 24h Active Cyclobenzaprine HCl 10 mg Orally 2 times a day prn 1 tablet Active Omeprazole 40 MG Orally Once a day 1 capsule 24h Active Potassium Chloride ER 10 MEQ orally once daily 1 tablet 24h 90 days Active Trazodone HCl 150 MG 2 tablet at bedtime as needed Once a day Orally 7 Active Symbicort 160-4.5 MCG/ACT Inhalation Twice a day 2 puffs 12h Active Paxil 30 MG 1 tablet in the morning Once a day Orally Active Indomethacin 50 MG Orally Twice a day 1 capsule with food or milk 12h Active Ondansetron 8 MG Orally every 8 hours 1 tablet 8h Sep, Active ProAir HFA 108 (90 Base) MCG/ACT Inhalation every 4 hrs prn 2 puffs as needed Active Carafate 1 GM Orally Twice a day 1 tablet on an empty stomach 12h 15 Oct, 2016 December, 30 day(s) Active BusPIRone HCl 15 MG 1 tablet Three times a day Orally Active Albuterol Sulfate (2.5 MG/3ML) 0.083% Inhalation every 4-6 hrs prn USE ONE VIA IN [facility] 30 days Active RESULTS Name Result Date Reference Range MAGNESIUM, SERUM 2016-11-05 Magnesium, Serum 2.1 1.6-2.3 CBC 2016-11-05 WBC 7.3 3.4-10.8 RBC 4.67 3.77-5.28 Hemoglobin 15.3 11.1-15.9 Hematocrit 45.2 34.0-46.6 MCV 97 79-97 MCH 32.8 26.6-33.0 MCHC 33.8 31.5-35.7 RDW 13.7 12.3-15.4 Platelets 237 150-379 Neutrophils 29 Lymphs 61 Monocytes 9 Eos 1 Basos 0 Neutrophils (Absolute) 2.1 1.4-7.0 Lymphs (Absolute) 4.4 0.7-3.1 Monocytes(Absolute) 0.7 0.1-0.9 Eos (Absolute) 0.1 0.0-0.4 Baso (Absolute) 0.0 0.0-0.2 Immature Granulocytes 0 Immature Grans (Abs) 0.0 0.0-0.1 VITAMIN D, 25-H 2016-11-05 Vitamin D, 25-Hydroxy 10.7 30.0-100.0 LIPID PANEL 2016-11-05 Cholesterol, Total 254 100-199 Triglycerides 154 0-149 HDL Cholesterol 62 >39 VLDL Cholesterol Bhavesh 31 5-40 LDL Cholesterol Calc 161 0-99 CMP 2016-11-05 Glucose, Serum 110 65-99 BUN 7 6-24 Creatinine, Serum 0.54 0.57-1.00 eGFR If NonAfricn Am 110 >59 eGFR If Africn Am 126 >59 BUN/Creatinine Ratio 13 9-23 Sodium, Serum 142 134-144 Potassium, Serum 3.8 3.5-5.2 Chloride, Serum 97 96-106 Carbon Dioxide, Total 29 18-29 Calcium, Serum 9.7 8.7-10.2 Protein, Total, Serum 7.2 6.0-8.5 Albumin, Serum 4.7 3.5-5.5 Globulin, Total 2.5 1.5-4.5 A/G Ratio 1.9 1.2-2.2 Bilirubin, Total 0.2 0.0-1.2 Alkaline Phosphatase, S 107 39-117 AST (SGOT) 15 0-40 ALT (SGPT) 12 0-32 Mammogram, Bilateral Screening 2016-11-14 PROCEDURES Procedure Date Ordered Result Body Site COMPREHEN METABOLIC PANEL November 05, 2016 LIPID PANEL November 05, 2016 ASSAY OF MAGNESIUM November 05, 2016 COMPLETE CBC W/AUTO DIFF WBC November 05, 2016 VENIPUNCT, ROUTINE* November 05, 2016 ASSAY OF VITAMIN D November 05, 2016 IMMUNIZATIONS No Known Immunizations MEDICAL (GENERAL) HISTORY Type Description Date Medical History asthma Medical History hernia Medical History depression-sees Catherine at [facility] Medical History anxiety-sees Catherine at [facility] Medical History ulcers Medical History Hypertension Medical History arthritis Medical History Homeless with History Drug Abuse Clean since 2013 Surgical History cholecystectomy 07/1994 Surgical History hernia repair Surgical History hysterectomy Surgical History peptic ulcer surgery Surgical History Colonoscopy 2016 Hospitalization History pneumonia 06/2010 Hospitalization History pneumonia, asthma vs COPD, hilar lymphadenopathy 2010 Hospitalization History ulcer/hypokalemia 10/2014 Hospitalization History heart attack
--- OUTSIDE RECORDS SUMMARY | 2017-09-03 23:29 | XMS REPORT | Continuity of Care Document ---
Author Author [facility] Address Unknown Phone Unavailable Allergies Active Description Code Type Severity Reaction Onset Reported/Identified Relationship to Patient Clinical Status Yes hydrocodone [id number] Drug Allergy Unknown N/A 07/23/2010 Yes acetaminophen [id number] Drug Allergy Unknown N/A 01/26/2015 Yes propoxyphene [id number] Drug Allergy Unknown N/A 01/26/2015 Yes Penicillins [id number] Drug Allergy Unknown HIVES 10/02/2015 Medications There is no data. Problems Date Dx Coded Attending Type Code Diagnosis Diagnosed By 02/29/2008 SUSANNA MAYO DO V74.1 Screening Examination For Pulmonary Tuberculosis 02/29/2008 V74.1 Screening Examination For Pulmonary Tuberculosis 02/29/2008 SUSANNA MAYO DO V74.1 Screening Examination For Pulmonary Tuberculosis 02/29/2008 V74.1 Screening Examination For Pulmonary Tuberculosis 02/29/2008 SUSANNA MAYO DO V74.1 Screening Examination For Pulmonary Tuberculosis 02/29/2008 SUSANNA MAYO DO V74.1 Screening Examination For Pulmonary Tuberculosis 02/29/2008 FAUSTINA HORVATH APRN V74.1 Screening Examination For Pulmonary Tuberculosis 02/29/2008 LAVONNE RIVERA DDS V74.1 Screening Examination For Pulmonary Tuberculosis 02/29/2008 RAMILA KING MD V74.1 Screening Examination For Pulmonary Tuberculosis 02/29/2008 MARIANNE HOLT DDS V74.1 Screening Examination For Pulmonary Tuberculosis 02/29/2008 MELISSA CARLOS APRN V74.1 Screening Examination For Pulmonary Tuberculosis 02/29/2008 MARÍA CLARK MD V74.1 Screening Examination For Pulmonary Tuberculosis 02/29/2008 MARIANNE HOLT DDS V74.1 Screening Examination For Pulmonary Tuberculosis 02/29/2008 MARÍA CLARK MD V74.1 Screening Examination For Pulmonary Tuberculosis 02/29/2008 RAMILA KING MD V74.1 Screening Examination For Pulmonary Tuberculosis 02/29/2008 MELISSA CARLOS APRN R V74.1 Screening Examination For Pulmonary Tuberculosis 02/29/2008 MAYO DO SUSANNA K V74.1 Screening Examination For Pulmonary Tuberculosis 03/14/2008 MAYO DO SUSANNA K 611.71 MASTODYNIA 03/14/2008 611.71 MASTODYNIA 03/14/2008 MAYO DO, SUSANNA K 611.71 MASTODYNIA 03/14/2008 611.71 MASTODYNIA 03/14/2008 MAYO DO SUSANNA K 611.71 MASTODYNIA 03/14/2008 MAYO DO, SUSANNA K 611.71 MASTODYNIA 03/14/2008 FAUSTINA HORVATH APRN 611.71 MASTODYNIA 03/14/2008 NICOLE LIRA, LAVONNE Gardiner 611.71 MASTODYNIA 03/14/2008 RAMILA KING MD 611.71 MASTODYNIA 03/14/2008 JONATHON LIRA, MARIANNE B 611.71 MASTODYNIA 03/14/2008 MELISSA CARLOS APRN R 611.71 MASTODYNIA 03/14/2008 MARÍA CLARK MD 611.71 MASTODYNIA 03/14/2008 JONATHON LIRA, MARIANNE B 611.71 MASTODYNIA 03/14/2008 MARÍA CLARK MD 611.71 MASTODYNIA 03/14/2008 RAMILA KING MD 611.71 MASTODYNIA 03/14/2008 MELISSA CARLOS APRN R 611.71 MASTODYNIA 03/14/2008 MAYO DO SUSANNA K 611.71 MASTODYNIA 08/21/2010 JODI MAYO DOA K 300.4 DYSTHYMIC DISORDER 08/21/2010 GAEL REIS SUSANNA K 305.1 NONDEPENDENT TOBACCO USE DISORDER 08/21/2010 GAEL REIS SUSANNA K 491.9 Unspecified Chronic Bronchitis 08/21/2010 GAEL REIS SUSANNA K 530.81 ESOPHAGEAL REFLUX 08/21/2010 300.4 DYSTHYMIC DISORDER 08/21/2010 305.1 NONDEPENDENT TOBACCO USE DISORDER 08/21/2010 491.9 Unspecified Chronic Bronchitis 08/21/2010 530.81 ESOPHAGEAL REFLUX 08/21/2010 GAEL REIS SUSANNA K 300.4 DYSTHYMIC DISORDER 08/21/2010 GAEL REIS SUSANNA K 305.1 current smoker 08/21/2010 MAYO DO, SUSANNA K 491.9 Unspecified Chronic Bronchitis 08/21/2010 MAYO DO, SUSANNA K 530.81 ESOPHAGEAL REFLUX 08/21/2010 300.4 DYSTHYMIC DISORDER 08/21/2010 305.1 current smoker 08/21/2010 491.9 Unspecified Chronic Bronchitis 08/21/2010 530.81 ESOPHAGEAL REFLUX 08/21/2010 MAYO DO, SUSANNA K 300.4 DYSTHYMIC DISORDER 08/21/2010 MAYO DO, SUSANNA K 305.1 current smoker 08/21/2010 MAYO DO, SUASNNA K 491.9 Unspecified Chronic Bronchitis 08/21/2010 MAYO DO, SUSANNA K 530.81 ESOPHAGEAL REFLUX 08/21/2010 MAYO DO, SUSANNA K 300.4 DYSTHYMIC DISORDER 08/21/2010 MAYO DO, SUSANNA K 305.1 current smoker 08/21/2010 MAYO DO, SUSANNA K 491.9 Unspecified Chronic Bronchitis 08/21/2010 MAYO DO, SUSANNA K 530.81 ESOPHAGEAL REFLUX 08/21/2010 YULIET VERNON FAUSTINA S 300.4 DYSTHYMIC DISORDER 08/21/2010 YULIET 4[employer] GRADE MATH TEACHER, FAUSTINA S 305.1 current smoker 08/21/2010 YULIET 4[employer] GRADE MATH TEACHER, FAUSTINA S 491.9 Unspecified Chronic Bronchitis 08/21/2010 YULIET 4[employer] GRADE MATH TEACHER, FAUSTINA S 530.81 ESOPHAGEAL REFLUX 08/21/2010 NICOLE DDS, LAVONNE D 300.4 DYSTHYMIC DISORDER 08/21/2010 WHITE DDS, LAVONNE D 305.1 current smoker 08/21/2010 WHITE DDS, LAVONNE D 491.9 Unspecified Chronic Bronchitis 08/21/2010 WHITE DDSLAVONNE D 530.81 ESOPHAGEAL REFLUX 08/21/2010 RAMILA KING MD 300.4 DYSTHYMIC DISORDER 08/21/2010 RAMILA KING MD 305.1 current smoker 08/21/2010 RAMILA KING MD 491.9 Unspecified Chronic Bronchitis 08/21/2010 RAMILA KING MD 530.81 ESOPHAGEAL REFLUX 08/21/2010 JONATHON DDS, MARIANNE B 300.4 DYSTHYMIC DISORDER 08/21/2010 JONATHON DDS, MARIANNE B 305.1 current smoker 08/21/2010 JONATHON DDS, MARIANNE B 491.9 Unspecified Chronic Bronchitis 08/21/2010 JONATHON DDS, MARIANNE B 530.81 ESOPHAGEAL REFLUX 08/21/2010 BREANNA 4[employer] GRADE MATH TEACHER, MELISSA R 300.4 DYSTHYMIC DISORDER 08/21/2010 BREANNA 4[employer] GRADE MATH TEACHER, MELISSA R 305.1 current smoker 08/21/2010 BREANNA 4[employer] GRADE MATH TEACHER, MELISSA R 491.9 Unspecified Chronic Bronchitis 08/21/2010 BREANNA 4TH GRADE MATH TEACHER, MELISSA R 530.81 ESOPHAGEAL REFLUX 08/21/2010 EDUARDO REAGAN, MARÍA Gardiner 300.4 DYSTHYMIC DISORDER 08/21/2010 EDUARDO REAGAN, MARÍA Gardiner 305.1 current smoker 08/21/2010 MARÍA CLARK MD 491.9 Unspecified Chronic Bronchitis 08/21/2010 MARÍA CLARK MD 530.81 ESOPHAGEAL REFLUX 08/21/2010 JONATHON DDS, MARIANNE B 300.4 DYSTHYMIC DISORDER 08/21/2010 JONATHON DDS, MARIANNE B 305.1 current smoker 08/21/2010 [facility] DDS, MARIANNE B 491.9 Unspecified Chronic Bronchitis 08/21/2010 JONATHON DDS, MARIANNE B 530.81 ESOPHAGEAL REFLUX 08/21/2010 MARÍA CLARK MD 300.4 DYSTHYMIC DISORDER 08/21/2010 MARÍA CLARK MD 305.1 current smoker 08/21/2010 MARÍA CLARK MD 491.9 Unspecified Chronic Bronchitis 08/21/2010 MARÍA CLARK MD 530.81 ESOPHAGEAL REFLUX 08/21/2010 RAMILA KING MD 300.4 DYSTHYMIC DISORDER 08/21/2010 RAMILA KING MD 305.1 current smoker 08/21/2010 RAMILA KING MD 491.9 Unspecified Chronic Bronchitis 08/21/2010 RAMILA KING MD 530.81 ESOPHAGEAL REFLUX 08/21/2010 BREANNA 4[employer] GRADE MATH TEACHER, MELISSA R 300.4 DYSTHYMIC DISORDER 08/21/2010 BREANNA 4[employer] GRADE MATH TEACHER, MELISSA R 305.1 current smoker 08/21/2010 BREANNA 4[employer] GRADE MATH TEACHER, MELISSA R 491.9 Unspecified Chronic Bronchitis 08/21/2010 BREANNA 4[employer] GRADE MATH TEACHER, MELISSA R 530.81 ESOPHAGEAL REFLUX 08/21/2010 MAYO DO, SUSANNA K 300.4 DYSTHYMIC DISORDER 08/21/2010 MAYO DO, SUSANNA K 305.1 current smoker 08/21/2010 SUSANNA MAYO DO 491.9 Unspecified Chronic Bronchitis 08/21/2010 SUSANNA MAYO DO 530.81 ESOPHAGEAL REFLUX 09/04/2010 SUSANNA MAYO DO 518.89 OTHER DISEASES OF LUNG NOT ELSEWHERE CLASSIFIED 09/04/2010 SUSANNA MAYO DO 724.2 LUMBAGO 09/04/2010 SUSANNA MAYO DO V03.82 Pcv7 Pcv13 Pcv23, Streptococcus Pneumoniae [pneumococcus] 09/04/2010 SUSANNA MAYO DO V72.31 Routine Gynecological Exam With Cervical Pap Smear 09/04/2010 SUSANNA MAYO DO V76.10 Breast Screening Unspecified 09/04/2010 518.89 OTHER DISEASES OF LUNG NOT ELSEWHERE CLASSIFIED 09/04/2010 724.2 LUMBAGO 09/04/2010 V03.82 Pcv7 Pcv13 Pcv23, Streptococcus Pneumoniae [pneumococcus] 09/04/2010 V72.31 Routine Gynecological Exam With Cervical Pap Smear 09/04/2010 V76.10 Breast Screening Unspecified 09/04/2010 SUSANNA MAYO DO 518.89 OTHER DISEASES OF LUNG NOT ELSEWHERE CLASSIFIED 09/04/2010 SUSANNA MAYO DO 724.2 LUMBAGO 09/04/2010 SUSANNA MAYO DO V03.82 Pcv7 Pcv13 Pcv23, Streptococcus Pneumoniae [pneumococcus] 09/04/2010 SUSANNA MAYO DO V72.31 Routine Gynecological Exam With Cervical Pap Smear 09/04/2010 SUSANNA MAYO DO V76.10 Breast Screening Unspecified 09/04/2010 518.89 OTHER DISEASES OF LUNG NOT ELSEWHERE CLASSIFIED 09/04/2010 724.2 LUMBAGO 09/04/2010 V03.82 Pcv7 Pcv13 Pcv23, Streptococcus Pneumoniae [pneumococcus] 09/04/2010 V72.31 Routine Gynecological Exam With Cervical Pap Smear 09/04/2010 V76.10 Breast Screening Unspecified 09/04/2010 SUSANNA MAYO DO 518.89 OTHER DISEASES OF LUNG NOT ELSEWHERE CLASSIFIED 09/04/2010 SUSANNA MAYO DO 724.2 LUMBAGO 09/04/2010 SUSANNA MAYO DO V03.82 Pcv7 Pcv13 Pcv23, Streptococcus Pneumoniae [pneumococcus] 09/04/2010 SUSANNA MAYO DO V72.31 Routine Gynecological Exam With Cervical Pap Smear 09/04/2010 JODI MAYO DOA K V76.10 Breast Screening Unspecified 09/04/2010 JODI MAYO DOA K 518.89 OTHER DISEASES OF LUNG NOT ELSEWHERE CLASSIFIED 09/04/2010 SUSANNA MAYO DO K 724.2 LUMBAGO 09/04/2010 SUSANNA MAYO DO K V03.82 Pcv7 Pcv13 Pcv23, Streptococcus Pneumoniae [pneumococcus] 09/04/2010 SUSANNA MAYO DO K V72.31 Routine Gynecological Exam With Cervical Pap Smear 09/04/2010 JODI MAYO DOA K V76.10 Breast Screening Unspecified 09/04/2010 YULIET 4TH GRADE MATH TEACHER, FAUSTINA S 518.89 OTHER DISEASES OF LUNG NOT ELSEWHERE CLASSIFIED 09/04/2010 FAUSTINA HORVATH APRN S 724.2 LUMBAGO 09/04/2010 FAUSTINA HORVATH APRN S V03.82 Pcv7 Pcv13 Pcv23, Streptococcus Pneumoniae [pneumococcus] 09/04/2010 SIXTO HORVATH APRNA S V72.31 Routine Gynecological Exam With Cervical Pap Smear 09/04/2010 LEONARDO HORVATH APRNNDA S V76.10 Breast Screening Unspecified 09/04/2010 WHITE DDS, LAVONNE Gardiner 518.89 OTHER DISEASES OF LUNG NOT ELSEWHERE CLASSIFIED 09/04/2010 WHITE DDS, LAVONNE Gardiner 724.2 LUMBAGO 09/04/2010 WHITE DDSLAVONNE V03.82 Pcv7 Pcv13 Pcv23, Streptococcus Pneumoniae [pneumococcus] 09/04/2010 WHITE DDSLAVONNE V72.31 Routine Gynecological Exam With Cervical Pap Smear 09/04/2010 WHITE DDSLAVONNE V76.10 Breast Screening Unspecified 09/04/2010 RAMILA KING MD 518.89 OTHER DISEASES OF LUNG NOT ELSEWHERE CLASSIFIED 09/04/2010 RAMILA KING MD 724.2 LUMBAGO 09/04/2010 RAMILA KING MD V03.82 Pcv7 Pcv13 Pcv23, Streptococcus Pneumoniae [pneumococcus] 09/04/2010 RAMILA KING MD V72.31 Routine Gynecological Exam With Cervical Pap Smear 09/04/2010 RAMILA KING MD V76.10 Breast Screening Unspecified 09/04/2010 JONATHON DDS, MARIANNE B 518.89 OTHER DISEASES OF LUNG NOT ELSEWHERE CLASSIFIED 09/04/2010 JONATHON DDS, MARIANNE B 724.2 LUMBAGO 09/04/2010 JONATHON DDS, MARIANEN B V03.82 Pcv7 Pcv13 Pcv23, Streptococcus Pneumoniae [pneumococcus] 09/04/2010 JONATHON DDS, MARIANNE B V72.31 Routine Gynecological Exam With Cervical Pap Smear 09/04/2010 JONATHON DDS, MARIANNE B V76.10 Breast Screening Unspecified 09/04/2010 BREANNA 4TH GRADE MATH TEACHER, MELISSA R 518.89 OTHER DISEASES OF LUNG NOT ELSEWHERE CLASSIFIED 09/04/2010 BREANNA 4TH GRADE MATH TEACHER, MELISSA R 724.2 LUMBAGO 09/04/2010 BREANNA 4TH GRADE MATH TEACHER, MELISSA R V03.82 Pcv7 Pcv13 Pcv23, Streptococcus Pneumoniae [pneumococcus] 09/04/2010 BREANNA 4TH GRADE MATH TEACHER, MELISSA R V72.31 Routine Gynecological Exam With Cervical Pap Smear 09/04/2010 BREANNA VERNON, MELISSA R V76.10 Breast Screening Unspecified 09/04/2010 MARÍA CLARK MD 518.89 OTHER DISEASES OF LUNG NOT ELSEWHERE CLASSIFIED 09/04/2010 MARÍA CLARK MD 724.2 LUMBAGO 09/04/2010 MARÍA CLARK MD V03.82 Pcv7 Pcv13 Pcv23, Streptococcus Pneumoniae [pneumococcus] 09/04/2010 MARÍA CLARK MD V72.31 Routine Gynecological Exam With Cervical Pap Smear 09/04/2010 MARÍA CLARK MD V76.10 Breast Screening Unspecified 09/04/2010 JONATHON DDS, MARIANNE B 518.89 OTHER DISEASES OF LUNG NOT ELSEWHERE CLASSIFIED 09/04/2010 JONATHON DDS, MARIANNE B 724.2 LUMBAGO 09/04/2010 JONATHON DDS, MARIANNE B V03.82 Pcv7 Pcv13 Pcv23, Streptococcus Pneumoniae [pneumococcus] 09/04/2010 JONATHON DDS, MARIANNE B V72.31 Routine Gynecological Exam With Cervical Pap Smear 09/04/2010 JONATHON DDS, MARIANNE B V76.10 Breast Screening Unspecified 09/04/2010 MARÍA CLARK MD 518.89 OTHER DISEASES OF LUNG NOT ELSEWHERE CLASSIFIED 09/04/2010 MARÍA CLARK MD 724.2 LUMBAGO 09/04/2010 MARÍA CLARK MD V03.82 Pcv7 Pcv13 Pcv23, Streptococcus Pneumoniae [pneumococcus] 09/04/2010 MARÍA CLARK MD V72.31 Routine Gynecological Exam With Cervical Pap Smear 09/04/2010 MARÍA CLARK MD V76.10 Breast Screening Unspecified 09/04/2010 RAMILA KING MD 518.89 OTHER DISEASES OF LUNG NOT ELSEWHERE CLASSIFIED 09/04/2010 RAMILA KING MD 724.2 LUMBAGO 09/04/2010 RAMILA KING MD V03.82 Pcv7 Pcv13 Pcv23, Streptococcus Pneumoniae [pneumococcus] 09/04/2010 RAMILA KING MD V72.31 Routine Gynecological Exam With Cervical Pap Smear 09/04/2010 RAMILA KING MD V76.10 Breast Screening Unspecified 09/04/2010 BREANNA VERNON, MELISSA R 518.89 OTHER DISEASES OF LUNG NOT ELSEWHERE CLASSIFIED 09/04/2010 BREANNA VERNON MELISSA R 724.2 LUMBAGO 09/04/2010 BREANNA VERNON MELISSA R V03.82 Pcv7 Pcv13 Pcv23, Streptococcus Pneumoniae [pneumococcus] 09/04/2010 BREANNA VERNON MELISSA R V72.31 Routine Gynecological Exam With Cervical Pap Smear 09/04/2010 BREANNA VERNON MELISSA R V76.10 Breast Screening Unspecified 09/04/2010 SUSANNA MAYO DO 518.89 OTHER DISEASES OF LUNG NOT ELSEWHERE CLASSIFIED 09/04/2010 SUSANNA MAYO DO 724.2 LUMBAGO 09/04/2010 SUSANNA MAYO DO V03.82 Pcv7 Pcv13 Pcv23, Streptococcus Pneumoniae [pneumococcus] 09/04/2010 SUSANNA MAYO DO V72.31 Routine Gynecological Exam With Cervical Pap Smear 09/04/2010 SUSANNA MAYO DO V76.10 Breast Screening Unspecified 10/14/2010 SUSANNA MAYO DO 627.9 Unspecified Menopausal And Postmenopausal Disorder 10/14/2010 SUSANNA MAYO DO 724.1 Pain In Thoracic Spine 10/14/2010 627.9 Unspecified Menopausal And Postmenopausal Disorder 10/14/2010 724.1 Pain In Thoracic Spine 10/14/2010 SUSANNA MAYO DO 627.9 Unspecified Menopausal And Postmenopausal Disorder 10/14/2010 MAYO DO, SUSANNA K 724.1 Pain In Thoracic Spine 10/14/2010 627.9 Unspecified Menopausal And Postmenopausal Disorder 10/14/2010 724.1 Pain In Thoracic Spine 10/14/2010 MAYO DO, SUSANNA K 627.9 Unspecified Menopausal And Postmenopausal Disorder 10/14/2010 MAYO DO, SUSANNA K 724.1 Pain In Thoracic Spine 10/14/2010 MAYO DO, SUSANNA K 627.9 Unspecified Menopausal And Postmenopausal Disorder 10/14/2010 MAYO DO, SUSANNA K 724.1 Pain In Thoracic Spine 10/14/2010 YULIET 4TH GRADE MATH TEACHER, FAUSTINA S 627.9 Unspecified Menopausal And Postmenopausal Disorder 10/14/2010 YULIETNICK MORENON, FAUSTINA S 724.1 Pain In Thoracic Spine 10/14/2010 NICOLE LAZCANOSLAVONNE D 627.9 Unspecified Menopausal And Postmenopausal Disorder 10/14/2010 NICOLE LAZCANOSLAVONNE D 724.1 Pain In Thoracic Spine 10/14/2010 RAMILA KING MD 627.9 Unspecified Menopausal And Postmenopausal Disorder 10/14/2010 RAMILA KING MD 724.1 Pain In Thoracic Spine 10/14/2010 JONATHON DDS, MARIANNE B 627.9 Unspecified Menopausal And Postmenopausal Disorder 10/14/2010 JONATHON DDS, MARIANNE B 724.1 Pain In Thoracic Spine 10/14/2010 BREANNA VERNON, MELISSA R 627.9 Unspecified Menopausal And Postmenopausal Disorder 10/14/2010 BREANNA VERNON, MELISSA R 724.1 Pain In Thoracic Spine 10/14/2010 MARÍA CLARK MD 627.9 Unspecified Menopausal And Postmenopausal Disorder 10/14/2010 MARÍA CLARK MD 724.1 Pain In Thoracic Spine 10/14/2010 JONATHON DDS, MARIANNE B 627.9 Unspecified Menopausal And Postmenopausal Disorder 10/14/2010 JONATHON DDS, MARIANNE B 724.1 Pain In Thoracic Spine 10/14/2010 MARÍA CLARK MD 627.9 Unspecified Menopausal And Postmenopausal Disorder 10/14/2010 MARÍA CLARK MD 724.1 Pain In Thoracic Spine 10/14/2010 RAMILA KING MD 627.9 Unspecified Menopausal And Postmenopausal Disorder 10/14/2010 RAMILA KING MD 724.1 Pain In Thoracic Spine 10/14/2010 MELISSA CARLOS APRN R 627.9 Unspecified Menopausal And Postmenopausal Disorder 10/14/2010 MELISSA CARLOS APRN R 724.1 Pain In Thoracic Spine 10/14/2010 SUSANNA MAYO DO K 627.9 Unspecified Menopausal And Postmenopausal Disorder 10/14/2010 JOID MAYO DOA K 724.1 Pain In Thoracic Spine 01/22/2011 Ot 724.2 01/22/2011 Ot V57.1 02/10/2011 Ot 724.5 02/10/2011 Ot 789.00 11/16/2011 Ot 708.9 URTICARIA NOS 11/16/2011 Ot 786.50 CHEST PAIN NOS 11/16/2011 Ot V58.69 OTH MED,LT, CURRENT USE 11/17/2011 GAEL REIS SUSANNA K 708.8 Other Specified Urticaria 11/17/2011 JODI MAYO DOA K 728.85 SPASM OF MUSCLE 11/17/2011 708.8 Other Specified Urticaria 11/17/2011 728.85 SPASM OF MUSCLE 11/17/2011 GAEL REIS SUSANNA K 708.8 Other Specified Urticaria 11/17/2011 MAYO DO SUSANNA K 728.85 MUSCLE SPASM 11/17/2011 708.8 Other Specified Urticaria 11/17/2011 728.85 MUSCLE SPASM 11/17/2011 MAYO DO SUSANNA K 708.8 Other Specified Urticaria 11/17/2011 MAYO DO SUSANNA K 728.85 MUSCLE SPASM 11/17/2011 MAYO DO SUSANNA K 708.8 Other Specified Urticaria 11/17/2011 MAYO DO SUSANNA K 728.85 MUSCLE SPASM 11/17/2011 YULIET VERNON FAUSTINA S 708.8 Other Specified Urticaria 11/17/2011 FAUSTINA HORVATH APRN S 728.85 MUSCLE SPASM 11/17/2011 NICOLE LAZCANOSLAVONNE 708.8 Other Specified Urticaria 11/17/2011 WHITE NENOSLAVONNE 728.85 MUSCLE SPASM 11/17/2011 RAMILA KING MD 708.8 Other Specified Urticaria 11/17/2011 RAMILA KING MD 728.85 MUSCLE SPASM 11/17/2011 JONATHON DDS, MARIANNE B 708.8 Other Specified Urticaria 11/17/2011 JONATHON DDS, MARIANNE B 728.85 MUSCLE SPASM 11/17/2011 BREANNA 4TH GRADE MATH TEACHER, MELISSA R 708.8 Other Specified Urticaria 11/17/2011 BREANNA 4TH GRADE MATH TEACHER, MELISSA R 728.85 MUSCLE SPASM 11/17/2011 EDUARDO REAGAN, MARÍA Gardiner 708.8 Other Specified Urticaria 11/17/2011 EDUARDO REAGAN, MARÍA Gardiner 728.85 MUSCLE SPASM 11/17/2011 JONATHON DDS, MARIANNE B 708.8 Other Specified Urticaria 11/17/2011 JONATHON DDS, MARIANNE B 728.85 MUSCLE SPASM 11/17/2011 EDUARDO REAGAN, MARÍA Gardiner 708.8 Other Specified Urticaria 11/17/2011 EDUARDO REAGAN, MARÍA Gardiner 728.85 MUSCLE SPASM 11/17/2011 RAMILA KING MD 708.8 Other Specified Urticaria 11/17/2011 RAMILA KING MD 728.85 MUSCLE SPASM 11/17/2011 BREANNA MORENON, MELISSA R 708.8 Other Specified Urticaria 11/17/2011 BREANNA VERNON, MELISSA R 728.85 MUSCLE SPASM 11/17/2011 SUSANNA MAYO DO 708.8 Other Specified Urticaria 11/17/2011 SUSANNA MAYO DO 728.85 MUSCLE SPASM 07/20/2012 SUSANNA MAYO DO 719.40 PAIN IN JOINT SITE UNSPECIFIED 07/20/2012 USSANNA MAYO DO 727.49 OTHER GANGLION AND CYST OF SYNOVIUM TENDON AND BURSA 07/20/2012 SUSANNA MAYO DO V58.69 LONG-TERM (CURRENT) USE OF OTHER MEDICATIONS 07/20/2012 719.40 PAIN IN JOINT SITE UNSPECIFIED 07/20/2012 727.49 OTHER GANGLION AND CYST OF SYNOVIUM TENDON AND BURSA 07/20/2012 V58.69 LONG-TERM ( CURRENT) USE OF OTHER MEDICATIONS 07/20/2012 SUSANNA MAYO DO 719.40 PAIN IN JOINT SITE UNSPECIFIED 07/20/2012 SUSANNA MAYO DO 727.49 OTHER GANGLION AND CYST OF SYNOVIUM TENDON AND BURSA 07/20/2012 SUSANNA MAYO DO V58.69 taking high-risk medication 07/20/2012 719.40 PAIN IN JOINT SITE UNSPECIFIED 07/20/2012 727.49 OTHER GANGLION AND CYST OF SYNOVIUM TENDON AND BURSA 07/20/2012 V58.69 taking high- risk medication 07/20/2012 MAYO DO SUSANNA K 719.40 PAIN IN JOINT SITE UNSPECIFIED 07/20/2012 MAYO DO SUSANNA K 727.49 OTHER GANGLION AND CYST OF SYNOVIUM TENDON AND BURSA 07/20/2012 MAYO DO SUSANNA K V58.69 taking high-risk medication 07/20/2012 MAYO DO SUSANNA K 719.40 PAIN IN JOINT SITE UNSPECIFIED 07/20/2012 MAOY DO SUSANNA K 727.49 OTHER GANGLION AND CYST OF SYNOVIUM TENDON AND BURSA 07/20/2012 MAYO DO SUSANNA K V58.69 taking high-risk medication 07/20/2012 YULIET VERNON FAUSTINA S 719.40 PAIN IN JOINT SITE UNSPECIFIED 07/20/2012 LEONARDO HORVATH APRNNDA S 727.49 OTHER GANGLION AND CYST OF SYNOVIUM TENDON AND BURSA 07/20/2012 YULIET VERNON FAUSTIAN S V58.69 taking high-risk medication 07/20/2012 WHITE DDS, LAVONNE D 719.40 PAIN IN JOINT SITE UNSPECIFIED 07/20/2012 NICOLE LAZCANOSLAVONNE 727.49 OTHER GANGLION AND CYST OF SYNOVIUM TENDON AND BURSA 07/20/2012 WHITE NNEOSLAVONNE V58.69 taking high-risk medication 07/20/2012 RAMILA KING MD 719.40 PAIN IN JOINT SITE UNSPECIFIED 07/20/2012 RAMILA KING MD 727.49 OTHER GANGLION AND CYST OF SYNOVIUM TENDON AND BURSA 07/20/2012 RAMILA KING MD V58.69 taking high-risk medication 07/20/2012 JONATHON DDS, MARIANNE B 719.40 PAIN IN JOINT SITE UNSPECIFIED 07/20/2012 JONATHON DDS, MARIANNE B 727.49 OTHER GANGLION AND CYST OF SYNOVIUM TENDON AND BURSA 07/20/2012 JONATHON DDS, MARIANNE B V58.69 taking high-risk medication 07/20/2012 MELISSA CARLOS APRN 719.40 PAIN IN JOINT SITE UNSPECIFIED 07/20/2012 MELISSA CARLOS APRN R 727.49 OTHER GANGLION AND CYST OF SYNOVIUM TENDON AND BURSA 07/20/2012 KARSTEN CARLOS APRNINA R V58.69 taking high-risk medication 07/20/2012 MARÍA CLARK MD 719.40 PAIN IN JOINT SITE UNSPECIFIED 07/20/2012 MARÍA CLARK MD 727.49 OTHER GANGLION AND CYST OF SYNOVIUM TENDON AND BURSA 07/20/2012 MARÍA CLARK MD V58.69 taking high-risk medication 07/20/2012 JONATHON DDS, MARIANNE B 719.40 PAIN IN JOINT SITE UNSPECIFIED 07/20/2012 JONATHON DDS, MARIANNE B 727.49 OTHER GANGLION AND CYST OF SYNOVIUM TENDON AND BURSA 07/20/2012 JONATHON DDS, MARIANNE B V58.69 taking high-risk medication 07/20/2012 MARÍA CLARK MD 719.40 PAIN IN JOINT SITE UNSPECIFIED 07/20/2012 MARÍA CLARK MD 727.49 OTHER GANGLION AND CYST OF SYNOVIUM TENDON AND BURSA 07/20/2012 MARÍA CLARK MD V58.69 taking high-risk medication 07/20/2012 RAMILA KING MD 719.40 PAIN IN JOINT SITE UNSPECIFIED 07/20/2012 RAMILA KING MD 727.49 OTHER GANGLION AND CYST OF SYNOVIUM TENDON AND BURSA 07/20/2012 RAMILA KING MD V58.69 taking high-risk medication 07/20/2012 MELISSA CARLOS APRN R 719.40 PAIN IN JOINT SITE UNSPECIFIED 07/20/2012 MELISSA CARLOS APRN R 727.49 OTHER GANGLION AND CYST OF SYNOVIUM TENDON AND BURSA 07/20/2012 KARSTEN CARLOS APRNINA R V58.69 taking high-risk medication 07/20/2012 SUSANNA MAYO DO 719.40 PAIN IN JOINT SITE UNSPECIFIED 07/20/2012 SUSANNA MAYO DO 727.49 OTHER GANGLION AND CYST OF SYNOVIUM TENDON AND BURSA 07/20/2012 SUSANNA MAYO DO V58.69 taking high-risk medication 11/09/2012 SUSANNA MAYO DO 786.07 Wheezing 11/09/2012 SUSANNA MAYO DO V70.0 Preventive Medicine Estab Patient Checkup Adult 40-64 11/09/2012 786.07 Wheezing 11/09/2012 V70.0 Preventive Medicine Estab Patient Checkup Adult 40-64 11/09/2012 MAYO DOJODIA K 786.07 Wheezing 11/09/2012 MAYO DO, SUSANNA K V70.0 Preventive Medicine Estab Patient Checkup Adult 40-64 11/09/2012 MAYO DO, SUSANNA K 786.07 WHEEZING 11/09/2012 MAYO DO, SUSANNA K V70.0 Preventive Medicine Estab Patient Checkup Adult 40-64 11/09/2012 FAUSTINA HORVATH APRN S 786.07 WHEEZING 11/09/2012 FAUSTINA HORVATH APRN S V70.0 Preventive Medicine Estab Patient Checkup Adult 40-64 11/09/2012 LAVONNE RIVERA DDS 786.07 WHEEZING 11/09/2012 LAVONNE RIVERA DDS V70.0 Preventive Medicine Estab Patient Checkup Adult 40-64 11/09/2012 RAMILA KING MD 786.07 WHEEZING 11/09/2012 RAMILA KING MD V70.0 Preventive Medicine Estab Patient Checkup Adult 40-64 11/09/2012 JONATHON LAZCANOS, MARIANNE B 786.07 WHEEZING 11/09/2012 JONATHON LIRA, MARIANNE B V70.0 Preventive Medicine Estab Patient Checkup Adult 40-64 11/09/2012 MELISSA CARLOS APRN R 786.07 WHEEZING 11/09/2012 MELISSA CARLOS APRN R V70.0 Preventive Medicine Estab Patient Checkup Adult 40-64 11/09/2012 MARÍA CLARK MD 786.07 WHEEZING 11/09/2012 MARÍA CLARK MD V70.0 Preventive Medicine Estab Patient Checkup Adult 40-64 11/09/2012 JONATHON LAZCANOS, MARIANNE B 786.07 WHEEZING 11/09/2012 JONATHON LIRA, MARIANNE B V70.0 Preventive Medicine Estab Patient Checkup Adult 40-64 11/09/2012 MARÍA CLARK MD 786.07 WHEEZING 11/09/2012 MARÍA CLARK MD V70.0 Preventive Medicine Estab Patient Checkup Adult 40-64 11/09/2012 RAMILA KING MD 786.07 WHEEZING 11/09/2012 RAMILA KING MD V70.0 Preventive Medicine Estab Patient Checkup Adult 40-64 11/09/2012 BREANNA VERNON MELISSA R 786.07 WHEEZING 11/09/2012 BREANNA VERNON MELISSA R V70.0 Preventive Medicine Estab Patient Checkup Adult 40-64 11/09/2012 MAYO DO SUSANNA K 786.07 WHEEZING 11/09/2012 MAYO DO, SUSANNA K V70.0 Preventive Medicine Estab Patient Checkup Adult 40-64 04/20/2013 788.41 URINARY FREQUENCY 04/20/2013 MAYO DO, SUSANNA K 788.41 URINARY FREQUENCY 04/20/2013 MAYO DO, SUSANNA K 788.41 URINARY FREQUENCY 04/20/2013 YULIET VERNON, FAUSTINA S 788.41 URINARY FREQUENCY 04/20/2013 LAVONNE RIVERA DDS 788.41 URINARY FREQUENCY 04/20/2013 RAMILA KING MD 788.41 URINARY FREQUENCY 04/20/2013 [facility] DDS, MARIANNE B 788.41 URINARY FREQUENCY 04/20/2013 BREANNA VERNON MELISSA R 788.41 URINARY FREQUENCY 04/20/2013 MARÍA CLARK MD 788.41 URINARY FREQUENCY 04/20/2013 JONATHON DDS, MARIANNE B 788.41 URINARY FREQUENCY 04/20/2013 MARÍA CLARK MD 788.41 URINARY FREQUENCY 04/20/2013 RAMILA KING MD 788.41 URINARY FREQUENCY 04/20/2013 BREANNA VERNON, MELISSA R 788.41 URINARY FREQUENCY 04/20/2013 MAYO DO, SUSANNA K 788.41 URINARY FREQUENCY 04/22/2013 V15.82 Nicotine abuse 04/22/2013 MAYO DO, SUSANNA K V15.82 Nicotine abuse 04/22/2013 MAYO DO, SUSANNA K V15.82 NICOTINE ABUSE 04/22/2013 YULIET VERNON FAUSTINA S V15.82 NICOTINE ABUSE 04/22/2013 LAVONNE RIVERA DDS V15.82 NICOTINE ABUSE 04/22/2013 RAMILA KING MD V15.82 NICOTINE ABUSE 04/22/2013 JONATHON DDS, MARIANNE B V15.82 NICOTINE ABUSE 04/22/2013 BREANNA VERNON MELISSA R V15.82 NICOTINE ABUSE 04/22/2013 MARÍA CLARK MD V15.82 NICOTINE ABUSE 04/22/2013 JONATHON DDS, MARIANNE B V15.82 NICOTINE ABUSE 04/22/2013 EDUARDO REAGAN, MARÍA Gardiner V15.82 NICOTINE ABUSE 04/22/2013 RAMILA KING MD V15.82 NICOTINE ABUSE 04/22/2013 BREANNA VERNON, MELISSA R V15.82 NICOTINE ABUSE 04/22/2013 MAYO DO, SUSANNA K V15.82 NICOTINE ABUSE 05/09/2013 MAYO DO, SUSANNA K V65.49 OTHER SPECIFIED COUNSELING 05/09/2013 MAYO DO, SUSANNA K V74.5 STD SCREEN 05/09/2013 MAYO DO, SUSANNA K V65.49 OTHER SPECIFIED COUNSELING 05/09/2013 MAYO DO, SUSANNA K V74.5 STD SCREEN 05/09/2013 FAUSTINA HORVATH APRN S V65.49 OTHER SPECIFIED COUNSELING 05/09/2013 YULIET VERNON FAUSTINA S V74.5 STD SCREEN 05/09/2013 NICOLE LAZCANOSLAVONNE V65.49 OTHER SPECIFIED COUNSELING 05/09/2013 NICOLE LAZCANOSLAVONNE V74.5 STD SCREEN 05/09/2013 RAMILA KING MD V65.49 OTHER SPECIFIED COUNSELING 05/09/2013 RAMILA KING MD V74.5 STD SCREEN 05/09/2013 JONATHON DDS, MARIANNE B V65.49 OTHER SPECIFIED COUNSELING 05/09/2013 JONATHON DDS, MAIRANNE B V74.5 STD SCREEN 05/09/2013 KARSTEN CARLOS APRNINA R V65.49 OTHER SPECIFIED COUNSELING 05/09/2013 BREANNA VERNON MELISSA R V74.5 STD SCREEN 05/09/2013 MARÍA CLARK MD V65.49 OTHER SPECIFIED COUNSELING 05/09/2013 MARÍA CLARK MD V74.5 STD SCREEN 05/09/2013 JONATHON DDS, MARIANNE B V65.49 OTHER SPECIFIED COUNSELING 05/09/2013 JONATHON DDS, MARIANNE B V74.5 STD SCREEN 05/09/2013 MARÍA CLARK MD V65.49 OTHER SPECIFIED COUNSELING 05/09/2013 MARÍA CLARK MD V74.5 STD SCREEN 05/09/2013 RAMILA KING MD V65.49 OTHER SPECIFIED COUNSELING 05/09/2013 RAMILA KING MD V74.5 STD SCREEN 05/09/2013 KARSTEN CARLOS APRNINA R V65.49 OTHER SPECIFIED COUNSELING 05/09/2013 KARSTEN CARLOS APRNINA R V74.5 STD SCREEN 05/09/2013 MAYO DO, SUSANNA K V65.49 OTHER SPECIFIED COUNSELING 05/09/2013 MAYO DO, SUSANNA K V74.5 STD SCREEN 09/01/2013 FAUSTINA HORVATH APRN S 787.02 NAUSEA ALONE 09/01/2013 FAUSTINA HORVATH APRN S 789.06 ABDOMINAL PAIN EPIGASTRIC 09/01/2013 WHITE DDS, LAVONNE Gardinre 787.02 NAUSEA ALONE 09/01/2013 WHITE DDS, LAVONNE Gardiner 789.06 ABDOMINAL PAIN EPIGASTRIC 09/01/2013 RAMILA KING MD 787.02 NAUSEA ALONE 09/01/2013 RAMILA KING MD 789.06 ABDOMINAL PAIN EPIGASTRIC 09/01/2013 JONATHON DDS, MARIANNE B 787.02 NAUSEA ALONE 09/01/2013 JONATHON DDS, MARIANNE B 789.06 ABDOMINAL PAIN EPIGASTRIC 09/01/2013 KARSTEN CARLOS APRNINA R 787.02 NAUSEA ALONE 09/01/2013 KARSTEN CARLOS APRNINA R 789.06 ABDOMINAL PAIN EPIGASTRIC 09/01/2013 MARÍA CLARK MD 787.02 NAUSEA ALONE 09/01/2013 MARÍA CLARK MD 789.06 ABDOMINAL PAIN EPIGASTRIC 09/01/2013 JONATHON DDS, MARIANNE B 787.02 NAUSEA ALONE 09/01/2013 JONATHON DDS, MARIANNE B 789.06 ABDOMINAL PAIN EPIGASTRIC 09/01/2013 MARÍA CLARK MD 787.02 NAUSEA ALONE 09/01/2013 MARÍA CLARK MD 789.06 ABDOMINAL PAIN EPIGASTRIC 09/01/2013 RAMILA KING MD 787.02 NAUSEA ALONE 09/01/2013 RAMILA KING MD 789.06 ABDOMINAL PAIN EPIGASTRIC 09/01/2013 KARSTEN CARLOS APRNINA R 787.02 NAUSEA ALONE 09/01/2013 KARSTEN CARLOS APRNINA R 789.06 ABDOMINAL PAIN EPIGASTRIC 09/01/2013 MAYO DO SUSANNA K 787.02 NAUSEA ALONE 09/01/2013 MAYO DO, SUSANNA K 789.06 ABDOMINAL PAIN EPIGASTRIC 09/27/2013 WHITE DDS, LAVONNE Gardiner 521.00 UNSPECIFIED DENTAL CARIES 09/27/2013 RAMILA IKNG MD 521.00 UNSPECIFIED DENTAL CARIES 09/27/2013 JONATHON NENOS, MARIANNE B 521.00 UNSPECIFIED DENTAL CARIES 09/27/2013 BREANNA VERNON, MELISSA R 521.00 UNSPECIFIED DENTAL CARIES 09/27/2013 MARÍA CLARK MD 521.00 UNSPECIFIED DENTAL CARIES 09/27/2013 [facility] PANKAJ, MARIANNE B 521.00 UNSPECIFIED DENTAL CARIES 09/27/2013 MARÍA CLARK MD 521.00 UNSPECIFIED DENTAL CARIES 09/27/2013 RAMILA KING MD 521.00 UNSPECIFIED DENTAL CARIES 09/27/2013 BREANNA VERNON, MELISSA R 521.00 UNSPECIFIED DENTAL CARIES 09/27/2013 GAEL REIS SUSANNA K 521.00 UNSPECIFIED DENTAL CARIES 11/21/2013 RAMILA KING MD 338.29 CHRONIC PAIN 11/21/2013 JONATHON PANKAJ, MARIANNE B 338.29 CHRONIC PAIN 11/21/2013 BREANNA VERNON, MELISSA R 338.29 CHRONIC PAIN 11/21/2013 MARÍA CLARK MD 338.29 CHRONIC PAIN 11/21/2013 JONATHON LIRA, MARIANNE B 338.29 CHRONIC PAIN 11/21/2013 MARÍA CLARK MD 338.29 CHRONIC PAIN 11/21/2013 RAMILA KING MD 338.29 CHRONIC PAIN 11/21/2013 BREANNA VERNON, MELISSA R 338.29 CHRONIC PAIN 11/21/2013 GAEL REIS, SUSANNA K 338.29 CHRONIC PAIN 11/29/2013 JONATHON PANKAJ, MARIANNE B 401.0 HYPERTENSION MALIGNANT ESSENTIAL 11/29/2013 BREANNA VERNON, MELISSA R 401.0 HYPERTENSION MALIGNANT ESSENTIAL 11/29/2013 MARÍA CLARK MD 401.0 HYPERTENSION MALIGNANT ESSENTIAL 11/29/2013 JONATHON LIRA, MARIANNE B 401.0 HYPERTENSION MALIGNANT ESSENTIAL 11/29/2013 MARÍA CLARK MD 401.0 HYPERTENSION MALIGNANT ESSENTIAL 11/29/2013 RAMILA KING MD 401.0 HYPERTENSION MALIGNANT ESSENTIAL 11/29/2013 KARSTEN CARLOS APRNINA R 401.0 HYPERTENSION MALIGNANT ESSENTIAL 11/29/2013 GAEL REIS SUSANNA K 401.0 HYPERTENSION MALIGNANT ESSENTIAL 11/30/2013 JONATHON DDS, MARIANNE B V72.2 DENTAL EXAMINATION 11/30/2013 BREANNA VERNON, MELISSA R V72.2 DENTAL EXAMINATION 11/30/2013 MARÍA CLARK MD V72.2 DENTAL EXAMINATION 11/30/2013 [facility] DDS, MARIANNE B V72.2 DENTAL EXAMINATION 11/30/2013 MARÍA CLARK MD V72.2 DENTAL EXAMINATION 11/30/2013 RAMILA KING MD V72.2 DENTAL EXAMINATION 11/30/2013 BREANNA VERNON, MELISSA R V72.2 DENTAL EXAMINATION 11/30/2013 MAYO DO, SUSANNA K V72.2 DENTAL EXAMINATION 02/20/2014 [facility] DDS, MARIANNE B V72.2 DENTAL EXAMINATION 02/20/2014 MARÍA CLARK MD V72.2 DENTAL EXAMINATION 02/20/2014 RAMILA KING MD V72.2 DENTAL EXAMINATION 02/20/2014 MELISSA CARLOS APRN R V72.2 DENTAL EXAMINATION 02/20/2014 GAEL REIS SUSANNA K V72.2 DENTAL EXAMINATION 04/17/2014 MARÍA CLARK MD 623.5 LEUKORRHEA NOT SPECIFIED INFECTIVE 04/17/2014 MARÍA CLARK MD 728.85 MUSCLE SPASM 04/17/2014 MARÍA CLARK MD V72.31 ROUTINE GYNECOLOGICAL EXAMINATION 04/17/2014 RAMILA KING MD 623.5 LEUKORRHEA NOT SPECIFIED INFECTIVE 04/17/2014 RAMILA KING MD 728.85 MUSCLE SPASM 04/17/2014 RAMILA KING MD V72.31 ROUTINE GYNECOLOGICAL EXAMINATION 04/17/2014 BREANNA VERNON MELISSA R 623.5 LEUKORRHEA NOT SPECIFIED INFECTIVE 04/17/2014 BREANNA VERNON MELISSA R 728.85 MUSCLE SPASM 04/17/2014 BREANNA VERNON MELISSA R V72.31 ROUTINE GYNECOLOGICAL EXAMINATION 04/17/2014 MAYO DO, SUSANNA K 623.5 LEUKORRHEA NOT SPECIFIED INFECTIVE 04/17/2014 MAYO DO, SUSANNA K 728.85 MUSCLE SPASM 04/17/2014 MAYO DO, SUSANNA K V72.31 ROUTINE GYNECOLOGICAL EXAMINATION 09/04/2014 MELISSA CARLOS APRN 486 PNEUMONIA ORGANISM UNSPECIFIED 09/04/2014 BREANNA 4TH GRADE MATH TEACHER, MELISSA R 487.1 INFLUENZA WITH OTHER RESPIRATORY MANIFESTATIONS 09/04/2014 BREANNA MORENON, MELISSA R 493.92 ASTHMA (ACUTE) EXACERBATION 09/04/2014 SUSANNA MAYO DO 486 PNEUMONIA ORGANISM UNSPECIFIED 09/04/2014 SUSANNA MAYO DO K 487.1 INFLUENZA WITH OTHER RESPIRATORY MANIFESTATIONS 09/04/2014 SUSANNA MAYO DO K 493.92 ASTHMA (ACUTE) EXACERBATION 01/26/2015 LAWRENCE BUCK DO Ot 300.00 ANXIETY STATE NOS 01/26/2015 LAWRENCE BUCK DO Ot 519.11 ACUTE BRONCHOSPASM 01/26/2015 LAWRENCE BUCK DO Ot 525.9 DENTAL DISORDER NOS 01/26/2015 LAWRENCE BUCK DO Ot V15.81 HX OF PAST NONCOMPLIANCE 01/26/2015 Ot 518.89 01/26/2015 Ot 518.89 01/26/2015 ISAAK ROSA APRN Ot 793.82 01/26/2015 ISAAK ROSA APRN Ot V76.12 01/26/2015 ISAAK ROSA APRN Ot 610.0 10/02/2015 HUBER NATARAJAN DO Ot K21.9 GASTRO-ESOPHAGEAL REFLUX DISEASE WITHOUT 10/02/2015 HUBER NATARAJAN DO Ot Z12.11 ENCOUNTER FOR SCREENING FOR MALIGNANT NE 10/04/2015 Ot 518.89 10/04/2015 Ot 518.89 10/04/2015 ISAAK ROSA 4TH GRADE MATH TEACHER Ot 793.82 10/04/2015 ISAAK ROSA APRN Ot V76.12 10/04/2015 ISAAK ROSA 4TH GRADE MATH TEACHER Ot 610.0 10/04/2015 HUBER NATARAJAN DO Ot Z01.818 10/08/2015 DANAY URBAN APRN Ot F11.21 OPIOID DEPENDENCE, IN REMISSION 10/08/2015 DANAY URBAN APRN Ot F17.210 NICOTINE DEPENDENCE, CIGARETTES, UNCOMPL 10/08/2015 DANAY URBAN 4TH GRADE MATH TEACHER Ot K04.7 PERIAPICAL ABSCESS WITHOUT SINUS 10/17/2015 TAWANNA VELÁZQUEZ MARINE EQUIPMENT RESEARCH ENGINEER Ot M85.89 10/17/2015 TAWANNA VELÁZQUEZ MARINE EQUIPMENT RESEARCH ENGINEER Ot Z12.31 11/24/2015 Ot F17.210 NICOTINE DEPENDENCE, CIGARETTES, UNCOMPL 11/24/2015 Ot M25.511 PAIN IN RIGHT SHOULDER 11/24/2015 Ot R07.89 OTHER CHEST PAIN 11/26/2015 Ot F17.210 11/26/2015 Ot M25.511 11/26/2015 Ot R07.89 12/17/2016 Ot 518.89 OTHER DISEASES OF LUNG, NEC 12/17/2016 ISAAK ROSA 4TH GRADE MATH TEACHER Ot 793.82 INCONCLUSIVE MAMMOGRAM 12/17/2016 ISAAK ROSA SAULO Ot V76.12 OTH SCREEN MAMMO-MALIGN NEOPLASM OF LUCHO 12/17/2016 ISAAK ROSA 4TH GRADE MATH TEACHER Ot 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 12/17/2016 MADLTAWANNA MARINE EQUIPMENT RESEARCH ENGINEER Ot M85.89 OTH DISRD OF BONE DENSITY AND STRUCTURE, 12/17/2016 TAWANNA VELÁZQUZE MARINE EQUIPMENT RESEARCH ENGINEER Ot Z12.31 ENCNTR SCREEN MAMMOGRAM FOR MALIGNANT NE 12/17/2016 HUBER NATARAJAN DO Ot Z01.818 ENCOUNTER FOR OTHER PREPROCEDURAL EXAMIN 12/17/2016 LAWRENCE BUCK DO Ot F11.21 OPIOID DEPENDENCE, IN REMISSION 12/17/2016 LAWRENCE BUCK DO Ot F17.210 NICOTINE DEPENDENCE, CIGARETTES, UNCOMPL 12/17/2016 LAWRENCE BUCK DO Ot K08.8 OTHER SPECIFIED DISORDERS OF TEETH AND S 12/17/2016 LAWRENCE BUCK DO Ot Z53.21 PROC/TRTMT NOT CRD OUT D/T PT LV BEF SEE 12/24/2016 Ot 518.89 OTHER DISEASES OF LUNG, NEC 12/24/2016 ISAAK ROSA SAULO Ot 793.82 INCONCLUSIVE MAMMOGRAM 12/24/2016 ISAAK ROSA SAULO Ot V76.12 OTH SCREEN MAMMO-MALIGN NEOPLASM OF LU[place] 12/24/2016 ISAAK ROSA SAULO Ot 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 12/24/2016 MADTAWANNA Keys MARINE EQUIPMENT RESEARCH ENGINEER Ot M85.89 OTH DISRD OF BONE DENSITY AND STRUCTURE, 12/24/2016 TAWANNA VELÁZQUEZ MARINE EQUIPMENT RESEARCH ENGINEER Ot Z12.31 ENCNTR SCREEN MAMMOGRAM FOR MALIGNANT NE 12/24/2016 HUBER NATARAJAN DO Ot Z01.818 ENCOUNTER FOR OTHER PREPROCEDURAL EXAMIN 12/24/2016 LAWRENCE BUCK DO Ot F11.21 OPIOID DEPENDENCE, IN REMISSION 12/24/2016 LAWRENCE BUCK DO Ot F17.210 NICOTINE DEPENDENCE, CIGARETTES, UNCOMPL 12/24/2016 LAWRENCE BUCK DO Ot K08.8 OTHER SPECIFIED DISORDERS OF TEETH AND S 12/24/2016 LAWRENCE BUCK DO Ot Z53.21 PROC/TRTMT NOT CRD OUT D/T PT LV BEF SEE 07/21/2017 ISAAK ROSA 4TH GRADE MATH TEACHER Ot 793.82 INCONCLUSIVE MAMMOGRAM 07/21/2017 ISAAK ROSA 4TH GRADE MATH TEACHER Ot V76.12 OTH SCREEN MAMMO-MALIGN NEOPLASM OF LU[place] 07/21/2017 ISAAK ROSA 4TH GRADE MATH TEACHER Ot 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 07/21/2017 MADL, TAWANNA L MARINE EQUIPMENT RESEARCH ENGINEER Ot M85.89 OTH DISRD OF BONE DENSITY AND STRUCTURE, 07/21/2017 MADLEDA L MARINE EQUIPMENT RESEARCH ENGINEER Ot Z12.31 ENCNTR SCREEN MAMMOGRAM FOR MALIGNANT NE 07/21/2017 NATARAJAN HUBER REIS Abdifatah Ot Z01.818 ENCOUNTER FOR OTHER PREPROCEDURAL EXAMIN 07/21/2017 LAWRENCE BUCK DO Ot F11.21 OPIOID DEPENDENCE, IN REMISSION 07/21/2017 LAWRENCE BUCK DO Ot F17.210 NICOTINE DEPENDENCE, CIGARETTES, UNCOMPL 07/21/2017 LAWRENCE BUCK DO Ot K08.8 OTHER SPECIFIED DISORDERS OF TEETH AND S 07/21/2017 LAWRENCE BUCK DO Ot Z53.21 PROC/TRTMT NOT CRD OUT D/T PT LV BEF SEE 07/22/2017 MADLEDA L MARINE EQUIPMENT RESEARCH ENGINEER Ot Z12.31 ENCNTR SCREEN MAMMOGRAM FOR MALIGNANT NE 07/27/2017 MADL, TAWANNA L MARINE EQUIPMENT RESEARCH ENGINEER Ot Z12.31 ENCNTR SCREEN MAMMOGRAM FOR MALIGNANT NE 07/27/2017 MADL, TAWANNA L MARINE EQUIPMENT RESEARCH ENGINEER Ot Z12.31 ENCNTR SCREEN MAMMOGRAM FOR MALIGNANT NE 07/27/2017 ISAAK ROSA 4TH GRADE MATH TEACHER Ot 793.82 INCONCLUSIVE MAMMOGRAM 07/27/2017 ISAAK ROSA APRN Ot V76.12 OTH SCREEN MAMMO-MALIGN NEOPLASM OF LU[place] 07/27/2017 ISAAK ROSA SAULO Ot 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 07/27/2017 TAWANNA VELÁZQUEZP Ot M85.89 OTH DISRD OF BONE DENSITY AND STRUCTURE, 07/27/2017 TAWANNA VELÁZQUEZ MARINE EQUIPMENT RESEARCH ENGINEER Ot Z12.31 ENCNTR SCREEN MAMMOGRAM FOR MALIGNANT NE 07/27/2017 NATARAJAN LEONARDOTT Abdifatah Ot Z01.818 ENCOUNTER FOR OTHER PREPROCEDURAL EXAMIN 07/27/2017 ICELO REIS LAWRENCE K Ot F11.21 OPIOID DEPENDENCE, IN REMISSION 07/27/2017 LAWRENCE BUCK DO Ot F17.210 NICOTINE DEPENDENCE, CIGARETTES, UNCOMPL 07/27/2017 CIELO LAWRENCE Jerald Ot K08.8 OTHER SPECIFIED DISORDERS OF TEETH AND S 07/27/2017 LAWRENCE BUCK DO Ot Z53.21 PROC/TRTMT NOT CRD OUT D/T PT LV BEF SEE 07/27/2017 EBERBRIETAWANNA Massimo MARINE EQUIPMENT RESEARCH ENGINEER Ot Z12.31 ENCNTR SCREEN MAMMOGRAM FOR MALIGNANT NE 08/14/2017 MYKELMassimoBRIETAWANNA Massimo MCDERMOTT Ot Z12.31 ENCNTR SCREEN MAMMOGRAM FOR MALIGNANT NE Procedures Code Description [place] [address] ROUTINE VENIPUNCTURE 11/09/2012 80564 CBC 11/09/2012 08622 CMP 11/09/2012 6672456 GFR CALC (RESULT ONLY) 11/09/2012 01347 TSH 11/09/2012 96058 PULMONARY FUNCTION TEST (IN- HOUSE) 04/22/2013 37869 BRONCHODILATION PRE/POST 04/22/2013 52742 RESPIRATORY FLOW VOLUME LOOP 04/22/2013 10173 PULMONARY EDUCATION 04/22/2013 G0437 TOBACCO-USE PETROLEUM ENGINEER>10MIN 04/22/2013 03722 MAMMOGRAM, SCREENING 04/26/2013 38433 GC/CHLAM PROBE ([facility]) 04/26/2013 26178 TRICHOMONAS (IN-HOUSE) 05/09/2013 18084 CULTURE UROGENITAL 05/11/2013 J2550 PHENERGAN INJECTION UP TO 50 MG 09/01/2013 45265 ROUTINE VENIPUNCTURE 09/27/2013 16617 H PYLORI (IN-HOUSE) 09/27/2013 85697 CBC 09/27/2013 6032822 GFR CALC (RESULT ONLY) 09/27/2013 30880 CMP 09/27/2013 56367 AMERITOX 01/19/2014 D0140 LIMIT ORAL EVAL PROBLM FOCUS 02/20/2014 D0220 INTRAORAL PERIAPICAL FIRST F 02/20/2014 D7140 EXTRACTION ERUPTED TOOTH/ EXR 02/20/2014 74305 UA LONG DIP 04/17/2014 41231 HEMOCCULT 04/17/2014 07600 CULTURE URINE 04/18/2014 59051 MAMMOGRAM, SCREENING 04/18/2014 84215 PAP SMEAR 04/18/2014 GC/CHLAM GC/CHLAMYDIA PROBE/URINE 04/18/2014 VAGPROF VAGINOSIS PROFILE 04/18/2014 59548 OXIMETRY 05/06/2014 93367 INFLUENZA A & B (IN-HOUSE) 09/04/2014 48560 XRAY CHEST 2 VIEW 09/05/2014 17854 OXIMETRY 09/05/2014 Results There is no data. Encounters ACCT No. Visit Date/Time Discharge Status Pt. Type Provider Facility Loc./Unit Complaint [id number] 09/05/2014 11:09:00 09/05/2014 23:59:59 CLS Outpatient MELISSA CARLOS APRN [id number] 09/04/2014 14:12:00 09/04/2014 23:59:59 CLS Outpatient GAEL SUSANNA REIS [id number] 05/03/2014 14:28:00 05/03/2014 23:59:59 CLS Outpatient RAMILA KING MD [id number] 04/17/2014 14:04:00 04/17/2014 23:59:59 CLS Outpatient MARÍA CLARK MD [id number] 02/20/2014 07:55:00 02/20/2014 23:59:59 CLS Outpatient MARIANNE HOLT DDS [id number] 01/31/2014 09:40:00 01/31/2014 23:59:59 CLS Outpatient MARÍA CLARK MD [id number] 01/19/2014 14:22:00 01/19/2014 23:59:59 CLS Outpatient MELISSA CARLOS APRN [id number] 11/30/2013 10:31:00 11/30/2013 23:59:59 CLS Outpatient MARIANNE HOLT DDS [id number] 11/21/2013 10:17:00 11/21/2013 23:59:59 CLS Outpatient RAMILA KING MD [id number] 09/27/2013 14:02:00 09/27/2013 23:59:59 CLS Outpatient LAVONNE RIVERA DDS [id number] 09/01/2013 11:28:00 09/01/2013 23:59:59 CLS Outpatient FAUSTINA HORVATH APRN [id number] 05/27/2013 15:02:00 05/27/2013 23:59:59 CLS Outpatient MAYO SUSANNA REIS [id number] 04/20/2013 10:30:00 04/20/2013 23:59:59 CLS Outpatient SUSANNA MAYO DO [id number] 11/09/2012 11:03:00 11/09/2012 23:59:59 [place] [id number] 07/20/2012 09:24:00 07/20/2012 23:59:59 CLS Outpatient SUSANNA MAYO DO [id number] 07/20/2012 09:24:00 07/20/2012 23:59:59 CLS Outpatient [id number] 04/22/2013 08:56:00 Document Registration [id number] 07/21/2017 12:48:00 07/21/2017 23:59:59 CLS Outpatient MADL, TAWANNA L MARINE EQUIPMENT RESEARCH ENGINEER [facility] RAD SCREENING Z12.39 [id number] 12/25/2016 12:45:00 12/25/2016 23:59:59 CLS Preadmit MADL, TAWANNA L MARINE EQUIPMENT RESEARCH ENGINEER [facility] RAD SCREENING [id number] 10/08/2015 13:52:00 10/08/2015 23:59:59 CLS Emergency CIELO DOLAWRENCE [facility] ER DENTAL PAIN [id number] 10/08/2015 21:58:00 10/08/2015 22:47:00 DIS Emergency DANAY URBAN APRN [facility] ER DENTAL PAIN [id number] 10/04/2015 09:41:00 10/04/2015 23:59:59 CLS Outpatient MADL, TAWANNA L MARINE EQUIPMENT RESEARCH ENGINEER [facility] RAD MOST MENOPAUSAL SYNDROME, ARNULFO SCREENING [id number] 10/02/2015 08:44:00 10/02/2015 23:59:59 CLS Outpatient HUBER NATARAJAN DO [facility] SDC SCREENING;REFLUX [id number] 09/27/2015 07:43:00 09/27/2015 23:59:59 CLS Outpatient HUBER NATARAJAN DO [facility] PREOP SCREENING;REFLUX [id number] 01/26/2015 08:02:00 01/26/2015 09:45:00 DIS Emergency CIELO LAWRENCE Marques [facility] ER SOA [id number] 06/03/2013 08:40:00 06/03/2013 23:59:59 CLS Outpatient ISAAK ROSA APRN [facility] RAD INCOMPLETE MAMMO [id number] 05/16/2013 10:06:00 05/16/2013 23:59:59 CLS Outpatient ISAAK ROSA APRN [facility] RAD SCREENING [id number] 11/24/2015 11:04:00 Document Registration [id number] 01/26/2015 09:49:00 Document Registration [id number] 07/08/2011 10:13:00 Document Registration [id number] 02/10/2011 22:28:00 Document Registration [id number] 01/27/2011 11:14:00 Document Registration [id number] 01/06/2011 12:41:00 Document Registration
[2017-09-03] MEDS ORDERED: LORazepam INJ 2 MG/ML (ATIVAN) VIAL IVP ONE (23:30)
[2017-09-03] MEDS ORDERED: ZIPRASIDONE 20 MG INJ (GEODON) VIAL IM ONE (23:30)
[2017-09-03 23:45] LABS: BASOPHILS % (AUTO) 0 % (0-10); EOSINOPHILS # (AUTO) 0.2 10^3/uL (0.0-0.3); EOSINOPHILS % (AUTO) 2 % (0-10); HEMATOCRIT 40 % (35-52); HEMOGLOBIN 14.4 G/DL (11.5-16.0); LYMPHOCYTES # (AUTO) 3.1 X 10^3 (1.0-4.0); LYMPHOCYTES % (AUTO) 31 % (12-44); MEAN CORPUSCULAR HEMOGLOBIN 33 PG (25-34); MEAN CORPUSCULAR HGB CONC 36 G/DL (32-36); MEAN CORPUSCULAR VOLUME 92 FL (80-99); MEAN PLATELET VOLUME 9.7 FL (7.4-10.4); MONOCYTES # (AUTO) 1.4 X 10^3 (0.0-1.0); MONOCYTES % (AUTO) 14 % (0-12); NEUTROPHILS # (AUTO) 5.2 X 10^3 (1.8-7.8); NEUTROPHILS % (AUTO) 53 % (42-75); PLATELET COUNT 217 10^3/uL (130-400); RED CELL DISTRIBUTION WIDTH 13.9 % (10.0-14.5); WHITE BLOOD COUNT 9.9 10^3/uL (4.3-11.0)
[2017-09-04] VITALS (14 sets, daily range): BP systolic 101–126; BP diastolic 55–76
[2017-09-04 00:06] LABS: ALANINE AMINOTRANSFERASE 33 U/L (0-55); ALBUMIN 4.6 GM/DL (3.2-4.5); ALKALINE PHOSPHATASE 86 U/L (40-136); BILIRUBIN,TOTAL 0.8 MG/DL (0.1-1.0); BUN/CREATININE RATIO 21; CALCIUM 9.7 MG/DL (8.5-10.1); CARBON DIOXIDE 23 MMOL/L (21-32); CHLORIDE 106 MMOL/L (98-107); CREATININE SERUM 0.61 MG/DL (0.60-1.30); GFR ESTIMATED > 60; GLUCOSE 109 MG/DL (70-105); MAGNESIUM 2.1 MG/DL (1.8-2.4); POTASSIUM 3.3 MMOL/L (3.6-5.0); SODIUM 142 MMOL/L (135-145); TOTAL PROTEIN 7.8 GM/DL (6.4-8.2)
[2017-09-04 00:25] LABS: TSH (THYROID ANALYZER) 1.83 UIU/ML (0.35-4.94)
[2017-09-04 00:41] LABS: BILIRUBIN,URINE NEGATIVE (NEGATIVE); CLARITY,URINE CLEAR; COLOR,URINE YELLOW; GLUCOSE, URINE (UA) NEGATIVE (NEGATIVE); KETONES,URINE 3+ (NEGATIVE); LEUKOCYTE ESTERASE ,URINE 1+ (NEGATIVE); NITRITE,URINE NEGATIVE (NEGATIVE); PH,URINE 5 (5-9); PROTEIN,URINE 2+ (NEGATIVE); UROBILINOGEN,URINE 1 MG/DL (NORMAL)
[2017-09-04 00:48] LABS: BACTERIA,URINE TRACE /HPF; WBC,URINE 0-2 /HPF
[2017-09-04 00:50] LABS: AMPHETAMINE SCREEN, URINE POSITIVE (NEGATIVE); BARBITURATE SCREEN URINE NEGATIVE (NEGATIVE); BENZODIAZEPINES SCREEN URINE NEGATIVE (NEGATIVE); CANNABINOID SCREEN, URINE POSITIVE (NEGATIVE); COCAINE SCREEN URINE NEGATIVE (NEGATIVE); METHADONE STAT NEGATIVE (NEGATIVE); METHAMPHETAMINE SCREEN URINE S POSITIVE (NEGATIVE); OPIATE SCREEN URINE NEGATIVE (NEGATIVE); OXYCODONE STAT NEGATIVE (NEGATIVE); PROPOXYPHENE STAT NEGATIVE (NEGATIVE); TRICYCLIC ANTIDEPRESSANTS SCRE NEGATIVE (NEGATIVE)
--- NOTE | 2017-09-04 01:27 | ED General ---
General Chief Complaint: Psych/Social Disorder Stated Complaint: SOB,SEIZURE Nursing Triage Note: BROUGHT IN BY [facility] FOR SEIZURE. PT REPORTED TO HAVE BEEN OUTSIDE FOR EXTENDED PERIOD OF TIME. PT MANIC ACTING WITH RAPID SPEECH. Nursing Sepsis Screen: No Definite Risk Source of Information: Patient, EMS, Old Records Exam Limitations: Other History of Present Illness Time Seen by Provider: 23:18 Initial Comments This 52-year-old woman is brought to the emergency room by EMS after being picked up at a local [place]. Bystanders reported they thought she was having a seizure. EMS reports she was having dystonic movements and shivering but did not appear to actually had a seizure. She was acutely psychotic and rambling on and a manic fashion about events of the day. She was not a coherent historian and was not oriented. Although not combative, she was not cooperative enough to ensure safety and appropriate assessment. Therefore Geodon and Ativan were ordered to help reduce her agitation, psychosis, and dystonic activity. Patient reportedly had been drinking alcohol. No trauma was reported. Allergies and Home Medications Allergies Coded Allergies: Penicillins (Unverified Allergy, Unknown, HIVES, 10/02/15) acetaminophen (Unverified Allergy, Unknown, 01/26/15) propoxyphene (Unverified Allergy, Unknown, 01/26/15) Home Medications Albuterol 8.5 Gm Hfa.aer.ad, 8.5 GM IH Q4H PRN for WHEEZING, (Reported) Albuterol Sulfate/Ipratropium 3 Ml Solution, 3 ML IH, (Reported) NEBULIZE 1 VIAL EVERY 4 HOURS NEEDED FOR SHORTNESS OF AIR OR WHEEZING Amlodipine Besylate 5 Mg Tablet, 5 MG PO DAILY, (Reported) Budesonide/Formoterol Fumarate 10.2 Gm Hfa.aer.ad, 10.2 GM IH, (Reported) 2 PUFFS TWICE A DAY Buspirone HCl 15 Mg Tablet, 15 MG PO TID, (Reported) Cyclobenzaprine Hcl 10 Mg Tablet, 10 MG PO BID, (Reported) Docusate Sodium 100 Mg Capsule, 100 MG PO DAILY PRN for CONSTIPATION, (Reported) Hydrocodone/Acetaminophen 1 Each Tablet, 1 EACH PO Q4H PRN for PAIN, #10 Prescribed by: DANAY URBAN on 10/08/15 3538 Hydrocodone/Acetaminophen 1 Each Tablet, 1 EACH PO Q4H PRN for PAIN, #10 Prescribed by: DANAY URBAN on 11/24/15 1138 Indomethacin 50 Mg Capsule, 50 MG PO BID, (Reported) Multivitamins 1 Tab Tablet, 1 TAB PO DAILY, (Reported) Naproxen Sodium 550 Mg Tablet, 550 MG PO BID PRN for PAIN, #30 Prescribed by: DANAY URBAN on 10/08/15 2229 Omeprazole 40 Mg Capsule.dr, 40 MG PO DAILY, (Reported) Paroxetine Hcl 30 Mg Tablet, 30 MG PO DAILY, (Reported) Potassium Chloride 10 Meq Capsule.er, 10 MEQ PO BID, (Reported) Trazodone Hcl 150 Mg Tablet, 300 MG PO HS, (Reported) take 2 (150mg) tabs Constitutional: see HPI EENTM: no symptoms reported Respiratory: no symptoms reported Cardiovascular: no symptoms reported Gastrointestinal: no symptoms reported Genitourinary: no symptoms reported : No Musculoskeletal: no symptoms reported Skin: no symptoms reported Psychiatric/Neurological: See HPI Hematologic/Lymphatic: No Symptoms Reported Past Nwwfvdl-[id number]-Ayzqgy Hx Patient Social History Alcohol Use: Denies Use Recreational Drug Use: Yes Smoking Status: Unknown if Ever Smoked 2nd Hand Smoke Exposure: No Recent Foreign Travel: No Contact w/Someone Who Travel: No Recent Infectious Disease Expo: No Recent Hopitalizations: No Immunizations Up To Date Tetanus Booster (TDap): Unknown PED Vaccines UTD: No Seasonal Allergies Seasonal Allergies: No Surgeries History of Surgeries: Yes (Vaginal fistula) Surgeries: Abdominal, Gallbladder, Hysterectomy, Rectal, Tonsillectomy Respiratory History of Respiratory Disorde: Yes Respiratory Disorders: Asthma, Pneumonia, COPD Cardiovascular History of Cardiac Disorders: Yes Cardiac Disorders: Hypertension Neurological History of Neurological Disord: No Neurological Disorders: Seizure Disorder Reproductive System : No Hx Reproductive Disorders: No Sexually Transmitted Disease: Yes (trich and chlymidia) [employer] History: Menopausal Gastrointestinal History of Gastrointestinal Di: Yes (peptic ulcer) Gastrointestinal Disorders: Gastroesophageal Reflux, Hiatal Hernia, Ulcer Musculoskeletal History of Musculoskeletal Dis: Yes Musculoskeletal Disorders: Arthritis Endocrine History of Endocrine Disorders: No HEENT History of HEENT Disorders: No Cancer History of Cancer: No Psychosocial History of Psychiatric Problem: Yes Behavioral Health Disorders: Anxiety, Depression Integumentary History of Skin or Integumenta: Yes (HIVES) Blood Transfusions History of Blood Disorders: No Physical Exam Vital Signs Vital Sign - Last 12Hours 09/03/17 23:23 Temp 97.7 Pulse 108 Resp 26 B/P (MAP) 148/78 (101) Pulse Ox 95 O2 Delivery Nasal Cannula O2 Flow Rate 3.00 Capillary Refill : Less Than 3 Seconds General Appearance: No Apparent Distress, WD/WN HEENT: PERRL/EOMI, Normal ENT Inspection, Other (oropharynx somewhat dry) Neck: Normal Inspection Respiratory: Lungs Clear, Normal Breath Sounds, No Accessory Muscle Use, No Respiratory Distress Cardiovascular: No Edema, No Murmur, Normal Peripheral Pulses Gastrointestinal: Normal Bowel Sounds, Non Tender, Soft Extremity: Normal Inspection Neurologic/Psychiatric: Alert, Other (dystonic movements. Manic pressured speech. Alert but disoriented. Tangential thinking.) Skin: Normal Color, Warm/Dry Progress/Results/Core Measures Suspected Sepsis Recent Fever Within 48 Hours: No Infection Criteria Present: None New/Unexplained Altered Menta: No Sepsis Screen: No Definite Risk Sepsis Diagnosis: SIRS Temperature:97.7 Pulse: 108 Respiratory Rate: 26 Laboratory Tests 09/03/17 23:30: White Blood Count 9.9 09/04/17 04:35: White Blood Count 9.0 Blood Pressure 148 /78 Mean: 101 Laboratory Tests 09/03/17 23:30: Creatinine 0.61, Platelet Count 217, Total Bilirubin 0.8 09/04/17 04:35: Creatinine 0.53L, Platelet Count 185 Results/Orders Lab Results Laboratory Tests Test 09/03/17 23:30 09/04/17 00:30 09/04/17 04:35 Range/Units White Blood Count 9.9 9.0 4.3-11.0 10^3/uL Red Blood Count 4.40 4.20 L 4.35-5.85 10^6/uL Hemoglobin 14.4 13.6 11.5-16.0 G/DL Hematocrit 40 39 35-52 % Mean Corpuscular Volume 92 94 80-99 FL Mean Corpuscular Hemoglobin 33 32 25-34 PG Mean Corpuscular Hemoglobin Concent 36 35 32-36 G/DL Red Cell Distribution Width 13.9 14.0 10.0-14.5 % Platelet Count 217 185 130-400 10^3/uL Mean Platelet Volume 9.7 10.0 7.4-10.4 FL Neutrophils (%) (Auto) 53 45 42-75 % Lymphocytes (%) (Auto) 31 39 12-44 % Monocytes (%) (Auto) 14 H 15 H 0-12 % Eosinophils (%) (Auto) 2 1 0-10 % Basophils (%) (Auto) 0 0 0-10 % Neutrophils # (Auto) 5.2 4.0 1.8-7.8 X 10^3 Lymphocytes # (Auto) 3.1 3.5 1.0-4.0 X 10^3 Monocytes # (Auto) 1.4 H 1.3 H 0.0-1.0 X 10^3 Eosinophils # (Auto) 0.2 0.1 0.0-0.3 10^3/uL Basophils # (Auto) 0.0 0.0 0.0-0.1 10^3/uL Sodium Level 142 145 135-145 MMOL/L Potassium Level 3.3 L 3.6 3.6-5.0 MMOL/L Chloride Level 106 110 H 98-107 MMOL/L Carbon Dioxide Level 23 23 21-32 MMOL/L Anion Gap 13 12 5-14 MMOL/L Blood Urea Nitrogen 13 9 7-18 MG/DL Creatinine 0.61 0.53 L 0.60-1.30 MG/DL Estimat Glomerular Filtration Rate > 60 > 60 BUN/Creatinine Ratio 21 17 Glucose Level 109 H 93 70-105 MG/DL Calcium Level 9.7 8.9 8.5-10.1 MG/DL Magnesium Level 2.1 2.1 1.8-2.4 MG/DL Total Bilirubin 0.8 0.1-1.0 MG/DL Aspartate Amino Transf (AST/SGOT) 32 5-34 U/L Alanine Aminotransferase (ALT/SGPT) 33 0-55 U/L Alkaline Phosphatase 86 40-136 U/L Total Protein 7.8 6.4-8.2 GM/DL Albumin 4.6 H 3.2-4.5 GM/DL TSH [facility] 1.83 0.35-4.94 UIU/ML Serum Alcohol < 10 <10 MG/DL Urine Color YELLOW Urine Clarity CLEAR Urine pH 5 5-9 Urine Specific [place] 1.025 H 1.016-1.022 Urine Protein 2+ H NEGATIVE Urine Glucose (UA) NEGATIVE NEGATIVE Urine Ketones 3+ H NEGATIVE Urine Nitrite NEGATIVE NEGATIVE Urine Bilirubin NEGATIVE NEGATIVE Urine Urobilinogen 1 NORMAL MG/DL Urine Leukocyte Esterase 1+ H NEGATIVE Urine RBC (Auto) NEGATIVE NEGATIVE Urine RBC NONE /HPF Urine WBC 0-2 /HPF Urine Squamous Epithelial Cells 2-5 /HPF Urine Crystals NONE /LPF Urine Bacteria TRACE /HPF Urine Casts PRESENT /LPF Urine Hyaline Casts 2-5 H /LPF Urine Mucus LARGE H /LPF Urine Culture Indicated NO Urine Opiates Screen NEGATIVE NEGATIVE Urine Oxycodone Screen NEGATIVE NEGATIVE Urine Methadone Screen NEGATIVE NEGATIVE Urine Propoxyphene Screen NEGATIVE NEGATIVE Urine Barbiturates Screen NEGATIVE NEGATIVE Ur Tricyclic Antidepressants Screen NEGATIVE NEGATIVE Urine Phencyclidine Screen NEGATIVE NEGATIVE Urine Amphetamines Screen POSITIVE H NEGATIVE Urine Methamphetamines Screen POSITIVE H NEGATIVE Urine Benzodiazepines Screen NEGATIVE NEGATIVE Urine Cocaine Screen NEGATIVE NEGATIVE Urine Cannabinoids Screen POSITIVE H NEGATIVE Phosphorus Level 3.5 2.3-4.7 MG/DL My Orders Orders - SALOMÓN DALE MD Alcohol (09/03/17 23:22) Cbc With Automated Diff (09/03/17 23:22) Comprehensive Metabolic Panel (09/03/17 23:22) Drug Screen Stat (Urine) (09/03/17 23:22) Magnesium (09/03/17 23:22) Thyroid Analyzer (09/03/17 23:22) Ua Culture If Indicated (09/03/17 23:22) Ziprasidone Injection (Geodon Injection) (09/03/17 23:30) Lorazepam Injection (Ativan Injection) (09/03/17 23:30) Saline Lock/Iv-Start (09/03/17 23:22) Ns Iv 1000 Ml (Sodium Chloride 0.9%) (09/03/17 23:22) Houser Cath Insertion (09/04/17 00:21) Medications Given in ED Current Medications Medications Dose Ordered Sig/Sanaz Route Start Time Stop Time Status Last Admin Dose Admin Lorazepam 1 mg ONCE ONCE IVP 09/03/17 23:30 09/03/17 23:31 DC 09/03/17 23:42 1 MG Sodium Chloride 1,000 ml @ 0 mls/hr Q0M ONCE IV 09/03/17 23:22 09/03/17 23:25 DC 09/03/17 23:42 0 MLS/HR Ziprasidone 10 mg ONCE ONCE IM 09/03/17 23:30 09/03/17 23:31 DC 09/03/17 23:42 10 MG Vital Signs/I&O Vital Sign - Last 12Hours 09/03/17 09/04/17 09/04/17 09/04/17 23:23 01:30 01:45 02:00 Temp 97.7 98.0 Pulse 108 99 93 Resp 26 16 B/P (MAP) 148/78 (101) 104/57 (73) Pulse Ox 95 99 O2 Delivery Nasal Cannula Nasal Cannula Nasal Cannula Room Air O2 Flow Rate 3.00 3.00 3.00 09/04/17 09/04/17 09/04/17 09/04/17 02:30 03:00 03:30 04:00 Temp 97.4 Pulse 94 96 87 93 B/P (MAP) 110/65 (80) 107/66 (80) 119/70 (86) 107/65 (79) O2 Delivery Room Air Room Air Room Air Room Air Capillary Refill : Less Than 3 Seconds Blood Pressure Mean: 101 Progress Note : Progress Note For patient's safety and cooperation and workup, Geodon 10 mg IM and Ativan 1 mg IV were administered. Patient eventually fell sleep. A liter of IV fluids was administered. A Houser catheter was placed. Serum alcohol was negative. Urine tested positive for methamphetamines, amphetamines, and marijuana. Patient was admitted to the ICU for observation. Departure Communication (Admissions) Time/Spoke to Admitting Phy: 01:[address] Marci Jones Impression Impression: Primary Impression: Acute psychosis Additional Impression: Polysubstance abuse Disposition: ADMITTED INPATIENT Condition: Improved Admissions Decision to Admit Reason: Admit from ER (General) Decision to Admit/Date: Sep 04, 2017 Time/Decision to Admit Time: 23:30 Departure-Patient Inst. Decision time for Depature: 00:00 Referrals: SUSANNA MAYO DO (PCP) Primary Care Physician TAWANNA VELÁZQUEZ (Family) Primary Care Physician SALOMÓN DALE MD Sep 04, 2017 01:27
--- OUTSIDE RECORDS SUMMARY | 2017-09-04 01:34 | XMS REPORT | Continuity of Care Document ---
Author Author Formerly [facility] Address Unknown Phone Unavailable Allergies Active Description Code Type Severity Reaction Onset Reported/Identified Relationship to Patient Clinical Status Yes hydrocodone [id number] Drug Allergy Unknown N/A 07/23/2010 Yes acetaminophen [id number] Drug Allergy Unknown N/A 01/26/2015 Yes propoxyphene [id number] Drug Allergy Unknown N/A 01/26/2015 Yes Penicillins [id number] Drug Allergy Unknown HIVES 10/02/2015 Medications There [...] FAUSTINA S 300.4 DYSTHYMIC DISORDER 08/21/2010 YULIET LAND ACQUISITION ANALYST, FAUSTINA S 305.1 current smoker 08/21/2010 YULIET LAND ACQUISITION ANALYST, FAUSTINA S 491.9 Unspecified Chronic Bronchitis 08/21/2010 YULIET LAND ACQUISITION ANALYST, FAUSTINA S 530.81 ESOPHAGEAL REFLUX 08/21/2010 NICOLE [...] MARIANNE B 530.81 ESOPHAGEAL REFLUX 08/21/2010 BREANNA LAND ACQUISITION ANALYST, MELISSA R 300.4 DYSTHYMIC DISORDER 08/21/2010 BREANNA LAND ACQUISITION ANALYST, MELISSA R 305.1 current smoker 08/21/2010 BREANNA LAND ACQUISITION ANALYST, MELISSA R 491.9 Unspecified Chronic Bronchitis 08/21/2010 BREANNA LAND ACQUISITION ANALYST, MELISSA R 530.81 ESOPHAGEAL REFLUX 08/21/2010 EDUARDO REAGAN, MARÍA Gardiner 300.4 DYSTHYMIC DISORDER 08/21/2010 EDUARDO REAGAN, MARÍA Gardiner 305.1 current smoker 08/21/2010 MARÍA CLARK MD 491.9 Unspecified Chronic Bronchitis 08/21/2010 MARÍA CLARK MD 530.81 ESOPHAGEAL REFLUX 08/21/2010 JONATHON DDS, MARIANNE B 300.4 DYSTHYMIC DISORDER 08/21/2010 JONATHON DDS, MARIANNE B 305.1 current smoker 08/21/2010 [facility] DDS, MARIANNE B 491.9 Unspecified Chronic Bronchitis [...] KING MD 530.81 ESOPHAGEAL REFLUX 08/21/2010 BREANNA LAND ACQUISITION ANALYST, MELISSA R 300.4 DYSTHYMIC DISORDER 08/21/2010 BREANNA LAND ACQUISITION ANALYST, MELISSA R 305.1 current smoker 08/21/2010 BREANNA LAND ACQUISITION ANALYST, MELISSA R 491.9 Unspecified Chronic Bronchitis 08/21/2010 BREANNA LAND ACQUISITION ANALYST, MELISSA R 530.81 ESOPHAGEAL REFLUX 08/21/2010 MAYO [...] DOA K V76.10 Breast Screening Unspecified 09/04/2010 OJDI MAYO DOA K 518.89 OTHER DISEASES OF LUNG NOT ELSEWHERE CLASSIFIED 09/04/2010 SUSANNA MAYO DO K 724.2 LUMBAGO 09/04/2010 SUSANNA MAYO DO K V03.82 Pcv7 Pcv13 Pcv23, Streptococcus Pneumoniae [pneumococcus] 09/04/2010 SUSANNA MAYO DO K V72.31 Routine Gynecological Exam With Cervical Pap Smear 09/04/2010 JODI MAYO DOA K V76.10 Breast Screening Unspecified 09/04/2010 YULIET LAND ACQUISITION ANALYST, FAUSTINA S 518.89 OTHER DISEASES OF LUNG [...] B V76.10 Breast Screening Unspecified 09/04/2010 BREANNA LAND ACQUISITION ANALYST, MELISSA R 518.89 OTHER DISEASES OF LUNG NOT ELSEWHERE CLASSIFIED 09/04/2010 BREANNA LAND ACQUISITION ANALYST, MELISSA R 724.2 LUMBAGO 09/04/2010 BREANNA LAND ACQUISITION ANALYST, MELISSA R V03.82 Pcv7 Pcv13 Pcv23, Streptococcus Pneumoniae [pneumococcus] 09/04/2010 BREANNA LAND ACQUISITION ANALYST, MELISSA R V72.31 Routine Gynecological Exam With [...] VERNON MELISSA R 724.2 LUMBAGO 09/04/2010 BREANNA VRENON MELISSA R V03.82 Pcv7 Pcv13 Pcv23, Streptococcus [...] 724.1 Pain In Thoracic Spine 10/14/2010 YULIET LAND ACQUISITION ANALYST, FAUSTINA S 627.9 Unspecified Menopausal And Postmenopausal [...] 627.9 Unspecified Menopausal And Postmenopausal Disorder 10/14/2010 JODI MAYO DOA K 724.1 Pain In Thoracic [...] MARIANNE B 728.85 MUSCLE SPASM 11/17/2011 BREANNA LAND ACQUISITION ANALYST, MELISSA R 708.8 Other Specified Urticaria 11/17/2011 BREANNA LAND ACQUISITION ANALYST, MELISSA R 728.85 MUSCLE SPASM 11/17/2011 EDUARDO [...] SYNOVIUM TENDON AND BURSA 07/20/2012 YULIET VERNON FAUSTINA S V58.69 taking high-risk medication 07/20/2012 WHITE DDS, LAVONNE D 719.40 PAIN IN JOINT SITE UNSPECIFIED 07/20/2012 NICOLE LAZCANOSLAVONNE 727.49 OTHER GANGLION AND CYST OF SYNOVIUM TENDON AND BURSA 07/20/2012 WHITE NENOSLAVONNE V58.69 taking high-risk medication 07/20/2012 RAMILA KING [...] LAVONNE RIVERA DDS 788.41 URINARY FREQUENCY 04/20/2013 ARMILA KING MD 788.41 URINARY FREQUENCY 04/20/2013 [facility] DDS, MARIANNE B 788.41 URINARY FREQUENCY 04/20/2013 [...] KING MD V15.82 NICOTINE ABUSE 04/22/2013 BREANNA EVRNON, MELISSA R V15.82 NICOTINE ABUSE 04/22/2013 MAYO [...] DDS, MARIANNE B V74.5 STD SCREEN 05/09/2013 KARSTEN CARLOS [...] ABDOMINAL PAIN EPIGASTRIC 09/01/2013 WHITE DDS, LAVONNE Gardiner 787.02 NAUSEA ALONE 09/01/2013 WHITE DDS, LAVONNE [...] Gardiner 521.00 UNSPECIFIED DENTAL CARIES 09/27/2013 RAMILA KING MD 521.00 UNSPECIFIED DENTAL CARIES 09/27/2013 JONATHON NENOS, MARIANNE B 521.00 UNSPECIFIED DENTAL CARIES 09/27/2013 BREANNA VERNON, MELISSA R 521.00 UNSPECIFIED DENTAL CARIES 09/27/2013 MARÍA CLARK MD 521.00 UNSPECIFIED DENTAL CARIES 09/27/2013 [facility] PANKAJ, MARIANNE B 521.00 UNSPECIFIED DENTAL CARIES [...] MARÍA CLARK MD V72.2 DENTAL EXAMINATION 11/30/2013 [facility] DDS, MARIANNE B V72.2 DENTAL EXAMINATION 11/30/2013 MARÍA CLARK MD V72.2 DENTAL EXAMINATION 11/30/2013 RMAILA KING MD V72.2 DENTAL EXAMINATION 11/30/2013 BREANNA VERNON, MELISSA R V72.2 DENTAL EXAMINATION 11/30/2013 MAYO DO, SUSANNA K V72.2 DENTAL EXAMINATION 02/20/2014 [facility] DDS, MARIANNE B V72.2 DENTAL EXAMINATION 02/20/2014 [...] APRN 486 PNEUMONIA ORGANISM UNSPECIFIED 09/04/2014 BREANNA LAND ACQUISITION ANALYST, MELISSA R 487.1 INFLUENZA WITH OTHER RESPIRATORY MANIFESTATIONS 09/04/2014 BREANNA MORENON, MELISSA R 493.92 ASTHMA (ACUTE) EXACERBATION 09/04/2014 SUSANNA MAYO DO 486 PNEUMONIA ORGANISM UNSPECIFIED 09/04/2014 SUSANNA MAYO DO K 487.1 INFLUENZA WITH OTHER RESPIRATORY MANIFESTATIONS 09/04/2014 SUSANNA MAYO DO K 493.92 ASTHMA (ACUTE) EXACERBATION 01/26/2015 LWARENCE BUCK DO Ot 300.00 ANXIETY STATE NOS [...] 518.89 10/04/2015 Ot 518.89 10/04/2015 ISAAK ROSA LAND ACQUISITION ANALYST Ot 793.82 10/04/2015 ISAAK ROSA APRN Ot V76.12 10/04/2015 ISAAK ROSA LAND ACQUISITION ANALYST Ot 610.0 10/04/2015 HUBER NATARAJAN DO Ot Z01.818 10/08/2015 DANAY URBAN APRN Ot F11.21 OPIOID DEPENDENCE, IN REMISSION 10/08/2015 DANAY URBAN APRN Ot F17.210 NICOTINE DEPENDENCE, CIGARETTES, UNCOMPL 10/08/2015 DANAY URBAN LAND ACQUISITION ANALYST Ot K04.7 PERIAPICAL ABSCESS WITHOUT SINUS 10/17/2015 TAWANNA VELÁZQUEZ SECRETARY OF STATE Ot M85.89 10/17/2015 TAWANNA VELÁZQUEZ SECRETARY OF STATE Ot Z12.31 11/24/2015 Ot F17.210 NICOTINE DEPENDENCE, CIGARETTES, UNCOMPL 11/24/2015 Ot M25.511 PAIN IN RIGHT SHOULDER 11/24/2015 Ot R07.89 OTHER CHEST PAIN 11/26/2015 Ot F17.210 11/26/2015 Ot M25.511 11/26/2015 Ot R07.89 12/17/2016 Ot 518.89 OTHER DISEASES OF LUNG, NEC 12/17/2016 ISAAK ROSA LAND ACQUISITION ANALYST Ot 793.82 INCONCLUSIVE MAMMOGRAM 12/17/2016 ISAAK ROSA SAULO Ot V76.12 OTH SCREEN MAMMO-MALIGN NEOPLASM OF LU[place] 12/17/2016 ISAAK ROSA LAND ACQUISITION ANALYST Ot 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 12/17/2016 MADLTAWANNA SECRETARY OF STATE Ot M85.89 OTH DISRD OF BONE DENSITY AND STRUCTURE, 12/17/2016 TAWANNA VELÁZQUEZ SECRETARY OF STATE Ot Z12.31 ENCNTR SCREEN MAMMOGRAM FOR MALIGNANT [...] SOLITARY CYST OF BREAST 12/24/2016 MADTAWANNA Keys SECRETARY OF STATE Ot M85.89 OTH DISRD OF BONE DENSITY AND STRUCTURE, 12/24/2016 TAWANNA VELÁZQUEZ SECRETARY OF STATE Ot Z12.31 ENCNTR SCREEN MAMMOGRAM FOR MALIGNANT [...] PT LV BEF SEE 07/21/2017 ISAAK ROSA LAND ACQUISITION ANALYST Ot 793.82 INCONCLUSIVE MAMMOGRAM 07/21/2017 ISAAK ROSA LAND ACQUISITION ANALYST Ot V76.12 OTH SCREEN MAMMO-MALIGN NEOPLASM OF LU[place] 07/21/2017 ISAAK ROSA LAND ACQUISITION ANALYST Ot 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 07/21/2017 MADL, TAWANNA L SECRETARY OF STATE Ot M85.89 OTH DISRD OF BONE DENSITY AND STRUCTURE, 07/21/2017 MADLEDA L SECRETARY OF STATE Ot Z12.31 ENCNTR SCREEN MAMMOGRAM FOR MALIGNANT NE 07/21/2017 NATARAJAN HUBER REIS Abdifatah Ot Z01.818 ENCOUNTER FOR OTHER PREPROCEDURAL EXAMIN 07/21/2017 LAWRENCE BUCK DO Ot F11.21 OPIOID DEPENDENCE, IN REMISSION 07/21/2017 LAWRENCE BUCK DO Ot F17.210 NICOTINE DEPENDENCE, CIGARETTES, UNCOMPL 07/21/2017 LAWRENCE BUKC DO Ot K08.8 OTHER SPECIFIED DISORDERS OF TEETH AND S 07/21/2017 LAWRENCE BUCK DO Ot Z53.21 PROC/TRTMT NOT CRD OUT D/T PT LV BEF SEE 07/22/2017 MADLEDA L SECRETARY OF STATE Ot Z12.31 ENCNTR SCREEN MAMMOGRAM FOR MALIGNANT NE 07/27/2017 MADL, TAWANNA L SECRETARY OF STATE Ot Z12.31 ENCNTR SCREEN MAMMOGRAM FOR MALIGNANT NE 07/27/2017 MADL, TAWANNA L SECRETARY OF STATE Ot Z12.31 ENCNTR SCREEN MAMMOGRAM FOR MALIGNANT NE 07/27/2017 ISAAK ROSA LAND ACQUISITION ANALYST Ot 793.82 INCONCLUSIVE MAMMOGRAM 07/27/2017 ISAAK ROSA APRN Ot V76.12 OTH SCREEN MAMMO-MALIGN NEOPLASM OF LU[place] 07/27/2017 ISAAK ROSA SAULO Ot 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 07/27/2017 TAWANNA VELÁZQUEZP Ot M85.89 OTH DISRD OF BONE DENSITY AND STRUCTURE, 07/27/2017 TAWANNA VELÁZQUEZ SECRETARY OF STATE Ot Z12.31 ENCNTR SCREEN MAMMOGRAM FOR MALIGNANT NE 07/27/2017 NATARAJAN LEONARDOTT Abdifatah Ot Z01.818 ENCOUNTER FOR OTHER PREPROCEDURAL EXAMIN 07/27/2017 CIELO REIS LAWRENCE K Ot F11.21 OPIOID DEPENDENCE, IN REMISSION 07/27/2017 LAWRENCE BUCK DO Ot F17.210 NICOTINE DEPENDENCE, CIGARETTES, UNCOMPL 07/27/2017 CIELO LAWRENCE Jerald Ot K08.8 OTHER SPECIFIED DISORDERS OF TEETH AND S 07/27/2017 LAWRENCE BUCK DO Ot Z53.21 PROC/TRTMT NOT CRD OUT D/T PT LV BEF SEE 07/27/2017 EBERBRIETAWANNA Massimo SECRETARY OF STATE Ot Z12.31 ENCNTR SCREEN MAMMOGRAM FOR MALIGNANT NE 08/14/2017 MYKELMassimoBRIETAWANNA Massimo MCDERMOTT Ot Z12.31 ENCNTR SCREEN MAMMOGRAM FOR MALIGNANT NE Procedures Code [place] [address] ROUTINE VENIPUNCTURE 11/09/2012 25733 CBC 11/09/2012 04922 CMP 11/09/2012 7634757 GFR CALC (RESULT ONLY) 11/09/2012 49173 TSH 11/09/2012 80661 PULMONARY FUNCTION TEST (IN- HOUSE) 04/22/2013 74607 BRONCHODILATION PRE/POST 04/22/2013 84986 RESPIRATORY FLOW VOLUME LOOP 04/22/2013 57033 PULMONARY EDUCATION 04/22/2013 G0437 TOBACCO-USE INDEPENDENT DISTRIBUTOR>10MIN 04/22/2013 79104 MAMMOGRAM, SCREENING 04/26/2013 72383 GC/CHLAM PROBE ([facility]) 04/26/2013 43667 TRICHOMONAS (IN-HOUSE) 05/09/2013 05032 CULTURE UROGENITAL 05/11/2013 J2550 PHENERGAN INJECTION UP TO 50 MG 09/01/2013 28470 ROUTINE VENIPUNCTURE 09/27/2013 46711 H PYLORI (IN-HOUSE) 09/27/2013 47090 CBC 09/27/2013 4202853 GFR CALC (RESULT ONLY) 09/27/2013 79194 CMP 09/27/2013 14967 AMERITOX 01/19/2014 D0140 LIMIT ORAL EVAL PROBLM FOCUS 02/20/2014 D0220 INTRAORAL PERIAPICAL FIRST F 02/20/2014 D7140 EXTRACTION ERUPTED TOOTH/ EXR 02/20/2014 35838 UA LONG DIP 04/17/2014 48141 HEMOCCULT 04/17/2014 86038 CULTURE URINE 04/18/2014 07670 MAMMOGRAM, SCREENING 04/18/2014 05877 PAP SMEAR 04/18/2014 GC/CHLAM GC/CHLAMYDIA PROBE/URINE 04/18/2014 VAGPROF VAGINOSIS PROFILE 04/18/2014 24975 OXIMETRY 05/06/2014 64117 INFLUENZA A & B (IN-HOUSE) 09/04/2014 50095 XRAY CHEST 2 VIEW 09/05/2014 80860 OXIMETRY 09/05/2014 Results Test Result Range Complete blood count (CBC) with automated white blood cell (WBC) differential - 09/03/17 23:30 Blood leukocytes automated count (number/volume) 9.9 10*3/uL 4.3-11.0 Blood erythrocytes automated count (number/volume) 4.40 10*6/uL 4.35-5.85 Venous blood hemoglobin measurement (mass/volume) 14.4 g/dL 11.5-16.0 Blood hematocrit (volume fraction) 40 % 35-52 Automated erythrocyte mean corpuscular volume 92 [foz_us] 80-99 Automated erythrocyte mean corpuscular hemoglobin (mass per erythrocyte) 33 pg 25-34 Automated erythrocyte mean corpuscular hemoglobin concentration measurement ( mass/volume) 36 g/dL 32-36 Automated erythrocyte distribution width ratio 13.9 % 10.0-14.5 Automated blood platelet count (count/volume) 217 10*3/uL 130-400 Automated blood platelet mean volume measurement 9.7 [foz_us] 7.4-10.4 Automated blood neutrophils/100 leukocytes 53 % 42-75 Automated blood lymphocytes/100 leukocytes 31 % 12-44 Blood monocytes/100 leukocytes 14 % 0-12 Automated blood eosinophils/100 leukocytes 2 % 0-10 Automated blood basophils/100 leukocytes 0 % 0-10 Blood neutrophils automated count (number/volume) 5.2 10*3 1.8-7.8 Blood lymphocytes automated count (number/volume) 3.1 10*3 1.0-4.0 Blood monocytes automated count (number/volume) 1.4 10*3 0.0-1.0 Automated eosinophil count 0.2 10*3/uL 0.0-0.3 Automated blood basophil count (count/volume) 0.0 10*3/uL 0.0-0.1 Comprehensive metabolic panel - 09/03/17 23:30 Serum or plasma sodium measurement (moles/volume) 142 mmol/L 135-145 Serum or plasma potassium measurement (moles/volume) 3.3 mmol/L 3.6-5.0 Serum or plasma chloride measurement (moles/volume) 106 mmol/L 98-107 Carbon dioxide 23 mmol/L 21-32 Serum or plasma anion gap determination (moles/volume) 13 mmol/L 5-14 Serum or plasma urea nitrogen measurement (mass/volume) 13 mg/dL 7-18 Serum or plasma creatinine measurement (mass/volume) 0.61 mg/dL 0.60-1.30 Serum or plasma urea nitrogen/creatinine mass ratio 21 NRG Serum or plasma creatinine measurement with calculation of estimated glomerular filtration rate > NRG Serum or plasma glucose measurement (mass/volume) 109 mg/dL 70-105 Serum or plasma calcium measurement (mass/volume) 9.7 mg/dL 8.5-10.1 Serum or plasma total bilirubin measurement (mass/volume) 0.8 mg/dL 0.1-1.0 Serum or plasma alkaline phosphatase measurement (enzymatic activity/volume) 86 U/L 40-136 Serum or plasma aspartate aminotransferase measurement (enzymatic activity/ volume) 32 U/L 5-34 Serum or plasma alanine aminotransferase measurement (enzymatic activity/volume ) 33 U/L 0-55 Serum or plasma protein measurement (mass/volume) 7.8 g/dL 6.4-8.2 Serum or plasma albumin measurement (mass/volume) 4.6 g/dL 3.2-4.5 Magnesium - 09/03/17 23:30 Magnesium 2.1 mg/dL 1.8-2.4 Serum or plasma thyrotropin measurement by detection limit <=0.05 miu/l (units/ volume) - 09/03/17 23:30 Serum or plasma thyrotropin measurement by detection limit <=0.05 miu/l (units/ volume) 1.83 u[iU]/mL 0.35-4.94 Serum or plasma ethanol measurement (mass/volume) - 09/03/17 23:30 Serum or plasma ethanol measurement (mass/volume) < mg/dL <10 Complete urinalysis with reflex to culture - 09/04/17 00:30 Urine color determination YELLOW NRG Urine clarity determination CLEAR NRG Urine pH measurement by test strip 5 5-9 Specific gravity of urine by test strip 1.025 1.016- 1.022 Urine protein assay by test strip, semi-quantitative 2+ NEGATIVE Urine glucose detection by automated test strip NEGATIVE NEGATIVE Erythrocytes detection in urine sediment by light microscopy NEGATIVE NEGATIVE Urine ketones detection by automated test strip 3+ NEGATIVE Urine nitrite detection by test strip NEGATIVE NEGATIVE Urine total bilirubin detection by test strip NEGATIVE NEGATIVE Urine urobilinogen measurement by automated test strip (mass/volume) 1 mg/dL NORMAL Urine leukocyte esterase detection by dipstick 1+ NEGATIVE Automated urine sediment erythrocyte count by microscopy (number/high power field) NONE NRG Automated urine sediment leukocyte count by microscopy (number/high power field ) [HPF] NRG Bacteria detection in urine sediment by light microscopy TRACE NRG Squamous epithelial cells detection in urine sediment by light microscopy 2-5 NRG Crystals detection in urine sediment by light microscopy NONE NRG Casts detection in urine sediment by light microscopy PRESENT NRG Mucus detection in urine sediment by light microscopy LARGE NRG Complete urinalysis with reflex to culture NO NRG Hyaline casts detection in urine sediment by light microscopy 2-5 NRG Urine drug screening test - 09/04/17 00:30 Urine phencyclidine detection by screening method NEGATIVE NEGATIVE Urine benzodiazepines detection by screening method NEGATIVE NEGATIVE Urine cocaine detection NEGATIVE NEGATIVE Urine amphetamines detection by screening method POSITIVE NEGATIVE Urine methamphetamine detection by screening method POSITIVE NEGATIVE Urine cannabinoids detection by screening method POSITIVE NEGATIVE Urine opiates detection by screening method NEGATIVE NEGATIVE Urine barbiturates detection NEGATIVE NEGATIVE Screening urine tricyclic antidepressants detection NEGATIVE NEGATIVE Urine methadone detection by screening method NEGATIVE NEGATIVE Urine oxycodone detection NEGATIVE NEGATIVE Urine propoxyphene detection NEGATIVE NEGATIVE Encounters ACCT No. Visit Date/Time Discharge Status Pt. Type Provider Facility Loc./Unit Complaint [id number] 09/05/2014 11:09:00 09/05/2014 23:59:59 CLS Outpatient MELISSA CARLOS APRN [id number] 09/04/2014 14:12:00 09/04/2014 23:59:59 CLS Outpatient SUSANNA MAYO DO [id number] 05/03/2014 14:28:00 05/03/2014 23:59:59 CLS Outpatient RAMILA KING MD [id number] 04/17/2014 14:04:00 04/17/2014 23:59:59 CLS Outpatient MARÍA CLARK MD [id number] 02/20/2014 07:55:00 02/20/2014 23:59:59 CLS Outpatient JONATHONMARIANNE Velez DDS [id number] 01/31/2014 09:40:00 01/31/2014 23:59:59 CLS Outpatient MARÍA CLARK MD [id number] 01/19/2014 14:22:00 01/19/2014 23:59:59 CLS Outpatient BREANNA LAND ACQUISITION ANALYST MELISSA Live [id number] 11/30/2013 10:31:00 11/30/2013 23:59:59 CLS Outpatient JONATHON MARIANNE LIRA [id number] 11/21/2013 10:17:00 11/21/2013 23:59:59 CLS Outpatient RAMILA KING MD [id number] 09/27/2013 14:02:00 09/27/2013 23:59:59 CLS Outpatient LAVONNE RIVERA DDS [id number] 09/01/2013 11:28:00 09/01/2013 23:59:59 CLS Outpatient YULIET VERNONLEONARDOFAUSTINA S [id number] 05/27/2013 15:02:00 05/27/2013 23:59:59 CLS Outpatient SUSANNA MAYO DO [id number] 04/20/2013 10:30:00 04/20/2013 23:59:59 CLS Outpatient MAYO DOSUSANNA [id number] 11/09/2012 11:03:00 11/09/2012 23:59:59 [place] [id number] 07/20/2012 09:24:00 07/20/2012 23:59:59 CLS Outpatient SUSANNA MAYO DO [id number] 07/20/2012 09:24:00 07/20/2012 23:59:59 CLS Outpatient [id number] 04/22/2013 08:56:00 Document Registration [id number] 07/21/2017 12:48:00 07/21/2017 23:59:59 CLS Outpatient MYKELLTAWANNA SECR[employer]ARY OF STATE [facility] RAD SCREENING Z12.39 [id number] 12/25/2016 12:45:00 12/25/2016 23:59:59 CLS Preadmit TAWANNA VELÁZQUEZ SECRETARY OF STATE [facility] RAD SCREENING [id number] 10/08/2015 13:52:00 10/08/2015 23:59:59 CLS Emergency CIELO DODAMONA K [facility] ER DENTAL PAIN [id number] 10/08/2015 21:58:00 10/08/2015 22:47:00 DIS Emergency DANAY URBAN LAND ACQUISITION ANALYST [facility] ER DENTAL PAIN [id number] 10/04/2015 09:41:00 10/04/2015 23:59:59 CLS Outpatient MYKELLTAWANNA SECR[employer]ARY [employer] STATE [facility] RAD MOST MENOPAUSAL SYNDROME, ARNULFO SCREENING [id number] 10/02/2015 08:44:00 10/02/2015 23:59:59 CLS Outpatient NATARAJAN DO HUBER D [facility] SDC SCREENING;REFLUX [id number] 09/27/2015 07:43:00 09/27/2015 23:59:59 CLS Outpatient NATARAJAN DO, HUBER D [facility] PREOP SCREENING;REFLUX [id number] 01/26/2015 08:02:00 01/26/2015 09:45:00 DIS Emergency CIELO DOLAWRENCE [facility] ER SOA [id number] 06/03/2013 08:40:00 06/03/2013 23:59:59 CLS Outpatient MOEISAAK A LAND ACQUISITION ANALYST [facility] RAD INCOMPLETE MAMMO [id number] 05/16/2013 10:06:00 05/16/2013 23:59:59 CLS Outpatient MOE, ISAAK A LAND ACQUISITION ANALYST [facility] RAD SCREENING [id number] 09/03/2017 23:46:00 Document Registration [id number] 11/24/2015 11:04:00 Document Registration [id number] 01/26/2015 09:49:00 Document Registration [id number] 07/08/2011 10:13:00 Document Registration [id number] 02/10/2011 22:28:00 Document Registration [id number] 01/27/2011 11:14:00 Document Registration [id number] 01/06/2011 12:41:00 Document Registration
[2017-09-04] MEDS ORDERED: NS W/KCL 20 MEQ/L 1,000 ML IV ONE (01:53)
[2017-09-04] MEDS: NS W/KCL 20 MEQ/L 1,000 ML IV SCH ×4 (04:29→22:44)
[2017-09-04 05:13] LABS: BASOPHILS % (AUTO) 0 % (0-10); EOSINOPHILS # (AUTO) 0.1 10^3/uL (0.0-0.3); EOSINOPHILS % (AUTO) 1 % (0-10); HEMATOCRIT 39 % (35-52); HEMOGLOBIN 13.6 G/DL (11.5-16.0); LYMPHOCYTES # (AUTO) 3.5 X 10^3 (1.0-4.0); LYMPHOCYTES % (AUTO) 39 % (12-44); MEAN CORPUSCULAR HEMOGLOBIN 32 PG (25-34); MEAN CORPUSCULAR HGB CONC 35 G/DL (32-36); MEAN CORPUSCULAR VOLUME 94 FL (80-99); MONOCYTES # (AUTO) 1.3 X 10^3 (0.0-1.0); MONOCYTES % (AUTO) 15 % (0-12); NEUTROPHILS % (AUTO) 45 % (42-75); PLATELET COUNT 185 10^3/uL (130-400)
[2017-09-04 05:33] LABS: BUN/CREATININE RATIO 17; CALCIUM 8.9 MG/DL (8.5-10.1); CARBON DIOXIDE 23 MMOL/L (21-32); CHLORIDE 110 MMOL/L (98-107); CREATININE SERUM 0.53 MG/DL (0.60-1.30); GFR ESTIMATED > 60; GLUCOSE 93 MG/DL (70-105); MAGNESIUM 2.1 MG/DL (1.8-2.4); PHOSPHORUS 3.5 MG/DL (2.3-4.7); POTASSIUM 3.6 MMOL/L (3.6-5.0); SODIUM 145 MMOL/L (135-145)
[2017-09-04] MEDS ORDERED: POTASSIUM CL 10MEQ/50ML IVPB 50 ML IV SCH (06:00)
[2017-09-04] MEDS ORDERED: KCL 20 MEQ TAB (K-DUR) PO SCH (06:00)
[2017-09-04] MEDS ORDERED: MAGNESIUM 1 GM/100 ML IVPB 100 ML IV SCH (06:00)
[2017-09-04] MEDS ORDERED: INFLUENZA TRIvalent 2017-2018 0.5 ML/45 MCG SYR IM ONE (07:45)
[2017-09-04] MEDS ORDERED: PRAV20TA3 PO (08:40)
[2017-09-04] MEDS ORDERED: TRAZ150T72 PO (08:40)
[2017-09-04] MEDS ORDERED: POTA10TA10 PO (08:40)
[2017-09-04] MEDS ORDERED: PARO30TA3 PO (08:40)
[2017-09-04] MEDS ORDERED: CYCL10TA9 PO (10:09)
[2017-09-04] MEDS ORDERED: RT-ALBUINH IH (10:09)
[2017-09-04] MEDS ORDERED: ALBU2.5V4 NEB (10:09)
[2017-09-04] MEDS ORDERED: BUDE10.2 IH (10:09)
--- NOTE | 2017-09-04 11:55 | History & Physicial (CHS) ---
HPI History of Present Illness: 52yo woman was rambling in a confused fashion in a local [facility] when she started to have tonic clonic movements. Bystanders were concerned about a seizure and EMS was called. Patient was brought to ER but was combative and so Geodon and Ativan were administered. Today, when I awoke the patient, she asked me where she was and then drifted back off to sleep. History is abbreviated for this reason. She was found to be positive for methamphetamines and diagnosed with methamphetamine-induced psychosis. Source: RN/, RN notes reviewed Exam Limitations: clinical condition Date seen by provider: Sep 04, 2017 Time Seen by Provider: 09:00 Attending Physician Maurisio Jones MD PCP Luh Guidry DO Consult Date of Admission Sep 04, 2017 at 01:24 Home Medications Home Medications Reviewed patient Home Medication Reconciliation Form Allergies Coded Allergies: Penicillins (Unverified Allergy, Unknown, HIVES, 10/02/15) acetaminophen (Unverified Allergy, Unknown, 01/26/15) propoxyphene (Unverified Allergy, Unknown, 01/26/15) XQN-Wipiic-Trtdhz Hx Patient Social History Alcohol Use: Denies Use Recreational Drug Use: Yes Smoking Status: Unknown if Ever Smoked 2nd Hand Smoke Exposure: No Recent Foreign Travel: No Contact w/other who traveled: No Recent Hopitalizations: No Recent Infectious Disease Expo: No Physical Abuse Screen: No Sexual Abuse: No Immunizations Up To Date Tetanus Booster (TDap): Unknown Review of Systems (CHC) Constitutional: no symptoms reported All Other Systems Reviewed Negative Unless Noted: Yes Reviewed Test Results Reviewed Test Results Lab Laboratory Tests Test 09/03/17 23:30 09/04/17 00:30 09/04/17 04:35 09/05/17 02:21 Range/Units White Blood Count 9.9 9.0 8.1 4.3-11.0 10^3/uL Red Blood Count 4.40 4.20 L 3.70 L 4.35-5.85 10^6/uL Hemoglobin 14.4 13.6 12.2 11.5-16.0 G/DL Hematocrit 40 39 35 35-52 % Mean Corpuscular Volume 92 94 95 80-99 FL Mean Corpuscular Hemoglobin 33 32 33 25-34 PG Mean Corpuscular Hemoglobin Concent 36 35 35 32-36 G/DL Red Cell Distribution Width 13.9 14.0 14.2 10.0-14.5 % Platelet Count 217 185 176 130-400 10^3/uL Mean Platelet Volume 9.7 10.0 10.1 7.4-10.4 FL Neutrophils (%) (Auto) 53 45 51 42-75 % Lymphocytes (%) (Auto) 31 39 37 12-44 % Monocytes (%) (Auto) 14 H 15 H 11 0-12 % Eosinophils (%) (Auto) 2 1 1 0-10 % Basophils (%) (Auto) 0 0 0 0-10 % Neutrophils # (Auto) 5.2 4.0 4.2 1.8-7.8 X 10^3 Lymphocytes # (Auto) 3.1 3.5 3.0 1.0-4.0 X 10^3 Monocytes # (Auto) 1.4 H 1.3 H 0.9 0.0-1.0 X 10^3 Eosinophils # (Auto) 0.2 0.1 0.1 0.0-0.3 10^3/uL Basophils # (Auto) 0.0 0.0 0.0 0.0-0.1 10^3/uL Sodium Level 142 145 145 135-145 MMOL/L Potassium Level 3.3 L 3.6 3.5 L 3.6-5.0 MMOL/L Chloride Level 106 110 H 114 H 98-107 MMOL/L Carbon Dioxide Level 23 23 21 21-32 MMOL/L Anion Gap 13 12 10 5-14 MMOL/L Blood Urea Nitrogen 13 9 7 7-18 MG/DL Creatinine 0.61 0.53 L 0.53 L 0.60-1.30 MG/DL Estimat Glomerular Filtration Rate > 60 > 60 > 60 BUN/Creatinine Ratio 21 17 13 Glucose Level 109 H 93 83 70-105 MG/DL Calcium Level 9.7 8.9 8.3 L 8.5-10.1 MG/DL Magnesium Level 2.1 2.1 1.9 1.8-2.4 MG/DL Total Bilirubin 0.8 0.1-1.0 MG/DL Aspartate Amino Transf (AST/SGOT) 32 5-34 U/L Alanine Aminotransferase (ALT/SGPT) 33 0-55 U/L Alkaline Phosphatase 86 40-136 U/L Total Protein 7.8 6.4-8.2 GM/DL Albumin 4.6 H 3.2-4.5 GM/DL TSH [place] Testing 1.83 0.35-4.94 UIU/ML Serum Alcohol < 10 <10 MG/DL Urine Color YELLOW Urine Clarity CLEAR Urine pH 5 5-9 Urine Specific [place] 1.025 H 1.016-1.022 Urine Protein 2+ H NEGATIVE Urine Glucose (UA) NEGATIVE NEGATIVE Urine Ketones 3+ H NEGATIVE Urine Nitrite NEGATIVE NEGATIVE Urine Bilirubin NEGATIVE NEGATIVE Urine Urobilinogen 1 NORMAL MG/DL Urine Leukocyte Esterase 1+ H NEGATIVE Urine RBC (Auto) NEGATIVE NEGATIVE Urine RBC NONE /HPF Urine WBC 0-2 /HPF Urine Squamous Epithelial Cells 2-5 /HPF Urine Crystals NONE /LPF Urine Bacteria TRACE /HPF Urine Casts PRESENT /LPF Urine Hyaline Casts 2-5 H /LPF Urine Mucus LARGE H /LPF Urine Culture Indicated NO Urine Opiates Screen NEGATIVE NEGATIVE Urine Oxycodone Screen NEGATIVE NEGATIVE Urine Methadone Screen NEGATIVE NEGATIVE Urine Propoxyphene Screen NEGATIVE NEGATIVE Urine Barbiturates Screen NEGATIVE NEGATIVE Ur Tricyclic Antidepressants Screen NEGATIVE NEGATIVE Urine Phencyclidine Screen NEGATIVE NEGATIVE Urine Amphetamines Screen POSITIVE H NEGATIVE Urine Methamphetamines Screen POSITIVE H NEGATIVE Urine Benzodiazepines Screen NEGATIVE NEGATIVE Urine Cocaine Screen NEGATIVE NEGATIVE Urine Cannabinoids Screen POSITIVE H NEGATIVE Phosphorus Level 3.5 2.5 2.3-4.7 MG/DL Physical Exam-([facility]) Physical Exam Vital Signs VS - Last 72 Hours, by Label 09/03/17 09/04/17 09/04/17 09/04/17 23:23 01:30 01:45 02:00 Temp 97.7 98.0 Pulse 108 99 93 Resp 26 16 B/P (MAP) 148/78 (101) 104/57 (73) Pulse Ox 95 99 O2 Delivery Nasal Cannula Nasal Cannula Nasal Cannula Room Air O2 Flow Rate 3.00 3.00 3.00 09/04/17 09/04/17 09/04/17 09/04/17 02:30 03:00 03:30 04:00 Temp 97.4 Pulse 94 96 87 93 B/P (MAP) 110/65 (80) 107/66 (80) 119/70 (86) 107/65 (79) O2 Delivery Room Air Room Air Room Air Room Air 09/04/17 09/04/17 09/04/17 09/04/17 08:00 08:03 09:00 09:22 Temp 97.8 Pulse 95 103 97 Resp 18 18 B/P (MAP) 109/55 (73) 112/64 (80) Pulse Ox 97 97 O2 Delivery Room Air Room Air Nasal Cannula O2 Flow Rate 3.00 3.00 3.00 09/04/17 09/04/17 09/04/17 09/04/17 11:59 13:00 15:17 19:00 Temp 98.0 97.5 Pulse 99 96 98 97 Resp 18 18 20 B/P (MAP) 116/60 (78) 110/64 (79) 107/58 (74) Pulse Ox 95 95 93 O2 Delivery Nasal Cannula Nasal Cannula Nasal Cannula O2 Flow Rate 2.00 2.00 2.00 2.00 09/04/17 09/04/17 09/04/17 09/04/17 19:00 19:34 20:00 21:00 Temp 98.1 Pulse 97 90 96 Resp 22 24 B/P (MAP) 126/70 (88) 107/72 (84) Pulse Ox 96 89 O2 Delivery Nasal Cannula Nasal Cannula Nasal Cannula O2 Flow Rate 2.00 2.00 2.00 09/04/17 09/04/17 09/05/17 09/05/17 22:00 23:00 00:00 01:00 Pulse 86 90 86 90 Resp 18 23 21 B/P (MAP) 109/59 (76) 101/76 (84) 117/65 (82) Pulse Ox 94 91 90 O2 Delivery Nasal Cannula Nasal Cannula Nasal Cannula O2 Flow Rate 2.00 2.00 2.00 09/05/17 09/05/17 09/05/17 09/05/17 01:00 02:00 03:00 04:00 Pulse 90 86 88 90 Resp 28 20 18 24 B/P (MAP) 119/67 (84) 116/70 (85) 128/72 (90) 134/56 (82) Pulse Ox 96 92 94 92 O2 Delivery Nasal Cannula Nasal Cannula Nasal Cannula Nasal Cannula O2 Flow Rate 2.00 2.00 2.00 2.00 09/05/17 09/05/17 09/05/17 09/05/17 05:00 06:00 06:32 07:00 Pulse 80 92 90 Resp 20 25 20 B/P (MAP) 133/75 (94) 122/87 (99) 116/74 (88) Pulse Ox 96 95 96 O2 Delivery Nasal Cannula Nasal Cannula Nasal Cannula Nasal Cannula O2 Flow Rate 2.00 2.00 3.00 2.00 09/05/17 07:00 Pulse 90 Capillary Refill : Less Than 3 Seconds General Appearance: WD/WN, no apparent distress HEENT: PERRL/EOMI, normal ENT inspection, pharynx normal Neck: non-tender, full range of motion, supple, normal inspection Respiratory: chest non-tender, lungs clear, normal breath sounds, no respiratory distress, no accessory muscle use Cardiovascular: regular rate, rhythm, no edema, no gallop, no JVD, no murmur Gastrointestinal: normal bowel sounds, non tender, soft, no organomegaly, no pulsatile mass Extremities: normal range of motion, non-tender, normal inspection, no pedal edema, no calf tenderness, normal capillary refill Neurologic/Psychiatric: baggage screener II-XII nml as tested, no motor/sensory deficits, alert, normal mood/affect, oriented x 3 Skin: normal color, warm/dry Clinical Quality Measures DVT/VTE Risk/Contraindication: Risk Factor Score Per Nursin RFS Level Per Nursing on Admit: 1=Low/No VTE PPX Copy Copies To 1: [employer] Assessment/Plan Assessment/Plan Plan METHAMPHETAMINE PSYCHOSIS METHAMPHETAMINE ABUSE ADM: Patient is currently sleeping off the Geodon and Ativan. There is no real treatment indicated for meth withdrawals. She is welcome to ATS at [facility] if she so desires. COPD ADM: Restart controller therapy, no need for the PRN inhalers as yet. HTN ADM: Restart home amlodipine DVT PROPH: MAURISIO Arreguin MD Sep 04, 2017 11:55 am
[2017-09-04] MEDS: LORazepam INJ 2 MG/ML (ATIVAN) VIAL IV PRN ×3 (13:26→22:44)
[2017-09-05] VITALS (13 sets, daily range): BP systolic 104–134; BP diastolic 56–88
[2017-09-05 02:42] LABS: BASOPHILS % (AUTO) 0 % (0-10); EOSINOPHILS # (AUTO) 0.1 10^3/uL (0.0-0.3); EOSINOPHILS % (AUTO) 1 % (0-10); HEMATOCRIT 35 % (35-52); HEMOGLOBIN 12.2 G/DL (11.5-16.0); LYMPHOCYTES % (AUTO) 37 % (12-44); MEAN CORPUSCULAR HEMOGLOBIN 33 PG (25-34); MEAN CORPUSCULAR HGB CONC 35 G/DL (32-36); MEAN CORPUSCULAR VOLUME 95 FL (80-99); MEAN PLATELET VOLUME 10.1 FL (7.4-10.4); MONOCYTES # (AUTO) 0.9 X 10^3 (0.0-1.0); MONOCYTES % (AUTO) 11 % (0-12); NEUTROPHILS # (AUTO) 4.2 X 10^3 (1.8-7.8); NEUTROPHILS % (AUTO) 51 % (42-75); PLATELET COUNT 176 10^3/uL (130-400); RED CELL DISTRIBUTION WIDTH 14.2 % (10.0-14.5); WHITE BLOOD COUNT 8.1 10^3/uL (4.3-11.0)
[2017-09-05 02:57] LABS: BUN/CREATININE RATIO 13; CALCIUM 8.3 MG/DL (8.5-10.1); CARBON DIOXIDE 21 MMOL/L (21-32); CHLORIDE 114 MMOL/L (98-107); CREATININE SERUM 0.53 MG/DL (0.60-1.30); GFR ESTIMATED > 60; GLUCOSE 83 MG/DL (70-105); MAGNESIUM 1.9 MG/DL (1.8-2.4); PHOSPHORUS 2.5 MG/DL (2.3-4.7); POTASSIUM 3.5 MMOL/L (3.6-5.0); SODIUM 145 MMOL/L (135-145)
[2017-09-05] MEDS: LORazepam INJ 2 MG/ML (ATIVAN) VIAL IV PRN (03:00)
[2017-09-05] MEDS ORDERED: LORazepam 0.5 MG (ATIVAN) TABLET PO PRN (08:15)
[2017-09-05] MEDS ORDERED: LORazepam 1 MG (ATIVAN) TAB PO ONE (08:15)
[2017-09-05] MEDS: NS W/KCL 20 MEQ/L 1,000 ML IV SCH (08:29)
[2017-09-05] MEDS ORDERED: INDOMETHACIN 25 MG (INDOCIN) CAP PO SCH (09:00)
--- NOTE | 2017-09-05 11:16 | Progress Note (SOAP) ---
Subjective Subjective/Events-last exam Patient alert. States that she does not know how to get a hold of her daughter and has no where to go. Denies any concerns this AM Review of Systems Date Seen by Provider: Sep 05, 2017 Time Seen by Provider: 09:15 Pulmonary: No Dyspnea Cardiovascular: No: Chest Pain Gastrointestinal: No: Nausea, Vomiting, Abdominal Pain Objective Exam Last Set of Vital Signs Vital Signs Date Time Temp Pulse Resp B/P (MAP) Pulse Ox O2 Delivery O2 Flow Rate FiO2 09/05/17 09:17 95 13 125/88 (100) 95 Nasal Cannula 2.00 09/04/17 19:34 98.1 Capillary Refill : Less Than 3 Seconds I&O Intake and Output 09/05/17 00:00 Intake Total 2050 ml Output Total 1875 ml Balance 175 ml Intake Oral 50 ml IV Total 2000 ml Output Urine Total 1875 ml Daily Weight Change Unsure General: Alert, Oriented X3, No Acute Distress Lungs: Clear to Auscultation, Normal Air Movement Heart: Regular Rate, No Murmurs Abdomen: Normal Bowel Sounds, Soft, No Tenderness, No Hepatosplenomegaly Psych/Mental Status: Mental Status NL Results/Procedures Lab Laboratory Tests 09/05/17 02:21: White Blood Count 8.1, Red Blood Count 3.70L, Hemoglobin 12.2, Hematocrit 35, Mean Corpuscular Volume 95, Mean Corpuscular Hemoglobin 33, Mean Corpuscular Hemoglobin Concent 35, Red Cell Distribution Width 14.2, Platelet Count 176, Mean Platelet Volume 10.1, Neutrophils (%) (Auto) 51, Lymphocytes (%) (Auto) 37 , Monocytes (%) (Auto) 11, Eosinophils (%) (Auto) 1, Basophils (%) (Auto) 0, Neutrophils # (Auto) 4.2, Lymphocytes # (Auto) 3.0, Monocytes # (Auto) 0.9, Eosinophils # (Auto) 0.1, Basophils # (Auto) 0.0, Sodium Level 145, Potassium Level 3.5L, Chloride Level 114H, Carbon Dioxide Level 21, Anion Gap 10, Blood Urea Nitrogen 7, Creatinine 0.53L, Estimat Glomerular Filtration Rate > 60, BUN/ Creatinine Ratio 13, Glucose Level 83, Calcium Level 8.3L, Phosphorus Level 2.5 , Magnesium Level 1.9 Assessment/Plan Assessment/Plan Plan METHAMPHETAMINE PSYCHOSIS METHAMPHETAMINE ABUSE ADM: Patient is currently sleeping off the Geodon and Ativan. There is no real treatment indicated for meth withdrawals. She is welcome to ATS at [facility] if she so desires. 09/05: Patient AOx3, psychosis resolved, holding Ativan COPD ADM: Restart controller therapy, no need for the PRN inhalers as yet. 09/05: Continue Advair, on RA HTN ADM: Restart home amlodipine DVT PROPH: SCDs SW: No services available over the weekend, patient is homeless and has nowhere to go. Dispo: Stable for D/c, however is homeless, transfer to Med/Surg Clinical Quality Measures DVT/VTE Risk/Contraindication: Risk Factor Score Per Nursin RFS Level Per Nursing on Admit: 1=Low/No VTE PPX TAMIR MICHAEL MD Sep 05, 2017 11:16
[2017-09-05] MEDS: PANTOPRAZOLE 40 MG (PROTONIX) TAB PO SCH (11:37)
[2017-09-05] MEDS: amLODIPine 5 MG (NORVASC) TAB PO SCH (11:37)
[2017-09-05] MEDS: PARoxetine 10 MG (PAXIL) TAB PO SCH (11:37)
[2017-09-05] MEDS: PARoxetine 20 MG (PAXIL) TAB PO SCH (11:37)
[2017-09-05] MEDS: busPIRone 15 MG (BUSPAR) TABLET PO SCH ×3 (11:37→20:05)
[2017-09-05] MEDS ORDERED: INFLUENZA TRIvalent 2017-2018 0.5 ML/45 MCG SYR IM ONE (20:00)
[2017-09-05] MEDS ORDERED: RT-ADVAIR HFA 115/21 MCG PER PUFF IH PRN (20:00)
[2017-09-05] MEDS: SIMvastatin 10 MG (ZOCOR) TAB PO SCH (20:05)
[2017-09-05] MEDS: IBUPROFEN 800 MG (MOTRIN) TAB PO PRN (20:20)
[2017-09-06] MEDS: IBUPROFEN 800 MG (MOTRIN) TAB PO PRN ×3 (02:05→21:45)
[2017-09-06] MEDS: PANTOPRAZOLE 40 MG (PROTONIX) TAB PO SCH (06:33)
[2017-09-06 08:00] VITALS: BP 121/64
[2017-09-06] MEDS: busPIRone 15 MG (BUSPAR) TABLET PO SCH ×3 (09:30→21:45)
[2017-09-06] MEDS: amLODIPine 5 MG (NORVASC) TAB PO SCH (09:30)
[2017-09-06] MEDS: PARoxetine 10 MG (PAXIL) TAB PO SCH (09:30)
[2017-09-06] MEDS: PARoxetine 20 MG (PAXIL) TAB PO SCH (09:35)
--- NOTE | 2017-09-06 11:47 | Discharge Summary ---
Diagnosis/Chief Complaint Date of Admission Sep 04, 2017 at 01:24 Date of Discharge 09/06/2017 Admission Diagnosis Admission Diagnosis Meth Psychosis: Resolved on Day 3. Patient back to baseline at time of discharge. Meth Abuse: Offered Outpatient ATS treatment. Patient states that she does not have a drug problem. She did not know what she was smoking. COPD: Restarted on Advair and albuterol PRN HTN: Controlled during admission Homelessness: Patient was helped with cab voucher to get back to long-term in [place] were she had a bed Discharge Diagnosis See Above Chief Complaint/HPI Chief Complaint/HPI 52yo woman was rambling in a confused fashion in a local [employer] when she started to have tonic clonic movements. Bystanders were concerned about a seizure and EMS was called. Patient was brought to ER but was combative and so Geodon and Ativan were administered. Today, when I awoke the patient, she asked me where she was and then drifted back off to sleep. History is abbreviated for this reason. She was found to be positive for methamphetamines and diagnosed with methamphetamine-induced psychosis. Discharge Summary-Simple/Stand Consultations Discharge Physical Examination Allergies: Coded Allergies: Penicillins (Unverified Allergy, Unknown, HIVES, 10/02/15) acetaminophen (Unverified Allergy, Unknown, 01/26/15) propoxyphene (Unverified Allergy, Unknown, 01/26/15) Vitals & I&Os Vital Sign - Last 12Hours Date Time Temp Pulse Resp B/P (MAP) Pulse Ox O2 Delivery O2 Flow Rate FiO2 09/06/17 08:00 97.6 84 20 121/64 (83) 94 Room Air 09/05/17 09:17 2.00 Intake and Output 09/06/17 00:00 Intake Total 552 ml Balance 552 ml General Appearance: Alert, Oriented X3, Cooperative, No Acute Distress HEENT: Mucous Memb Moist/[place] Respiratory: Clear to Auscultation, Normal Air Movement Cardiovascular: Regular Rate, No Murmurs Abdominal: Normal Bowel Sounds, Soft, No Tenderness, No Hepatosplenomegaly, No Masses Extremities: No Edema, No Tenderness/Swelling Skin: No Rashes, No Breakdown Neuro: Normal Gait, Normal Speech, Strength at 5/5 X4 Ext, Sensation Intact, Cranial Nerves 3-12 NL Psych/Mental Status: Mental Status NL, Mood NL Hospital Course See final discharge diagnosis. Discussion & Recommendations See Admission Dx Discharge Condition at discharge Stable Instructions to patient/family Please see electronic discharge instructions given to patient. Discharge Medications Reviewed and agree with Discharge Medication list on patient's Discharge Instruction sheet Clinical Quality Measures DVT/VTE Risk/Contraindication: Risk Factor Score Per Nursin RFS Level Per Nursing on Admit: 1=Low/No VTE PPX Copy Copies To 1: TAMIR MICHAEL MD, HOLLY R MD Sep 06, 2017 11:47
--- NOTE | 2017-09-06 11:50 | Discharge Instructions ---
Discharge [facility] Discharge Medications Continued Medications: Albuterol Sulfate (Proair Hfa) 1 Puff Puff 2 PUFF IH Q4H PRN for SHORTNESS OF BREATH, PUFF 1 PUFF = 90 MCG Albuterol Sulfate (Albuterol Sulfate) 2.5 Mg/3 Ml Vial.neb 2.5 MG NEB Q4H PRN for SHORTNESS OF BREATH, EA Amlodipine Besylate (Amlodipine Besylate) 5 Mg Tablet 5 MG PO DAILY, TAB Budesonide/Formoterol Fumarate (Symbicort 160-4.5 Mcg Inhaler) 10.2 Gm Hfa.aer.ad 2 PUFF IH BID PRN for SHORTNESS OF BREATH, INHALER Buspirone HCl (Buspirone HCl) 15 Mg Tablet 15 MG PO TID, TAB Indomethacin (Indomethacin) 50 Mg Capsule 50 MG PO BID, CAP Omeprazole (Omeprazole) 40 Mg Capsule.dr 40 MG PO DAILY, CAP Paroxetine HCl (Paroxetine HCl) 30 Mg Tablet 30 MG PO DAILY, TAB Pravastatin Sodium (Pravastatin Sodium) 20 Mg Tablet 20 MG PO HS, TAB Discontinued Medications: Cyclobenzaprine HCl (Cyclobenzaprine HCl) 10 Mg Tablet 10 MG PO BID PRN for MUSCLE SPASMS, TAB Potassium Chloride (Potassium Chloride) 10 Meq Tablet.er 10 MEQ PO DAILY, TAB Trazodone HCl (Trazodone HCl) 150 Mg Tablet 300 MG PO HS, TAB TAKES 2 (150MG) TABLETS Patient Instructions Goal/Follow Up Appt: States she is moving to [place] and will follow with Dr andre Patient Instructions: - Discussed the importance of cessation from substance use Activity & Diet Discharge Diet: No Restrictions Orders-Post D/C & Referrals Pneu Vac Indicated: Yes TAMIR MICHAEL MD Sep 06, 2017 11:50
[2017-09-06] MEDS: NICOTINE 21 MG (NICODERM) PATCH TD SCH (13:21)
[2017-09-06 16:00] VITALS: BP 124/74
[2017-09-06 20:41] VITALS: BP_SYST 127; BP_SYST 137; BP_DIAS 78; BP_DIAS 80
[2017-09-06] MEDS: SIMvastatin 10 MG (ZOCOR) TAB PO SCH (21:45)
[2017-09-07] VITALS: BP 116/69
[2017-09-07] MEDS: PANTOPRAZOLE 40 MG (PROTONIX) TAB PO SCH (06:23)
[2017-09-07] MEDS: IBUPROFEN 800 MG (MOTRIN) TAB PO PRN (06:23)
[2017-09-07 08:00] VITALS: BP 124/71
[2017-09-07] MEDS: busPIRone 15 MG (BUSPAR) TABLET PO SCH (08:43)
[2017-09-07] MEDS: NICOTINE 21 MG (NICODERM) PATCH TD SCH (08:43)
[2017-09-07] MEDS: PARoxetine 20 MG (PAXIL) TAB PO SCH (08:43)
[2017-09-07] MEDS: PARoxetine 10 MG (PAXIL) TAB PO SCH (08:43)
[2017-09-07] MEDS: amLODIPine 5 MG (NORVASC) TAB PO SCH (08:43)
[2017-09-07] MEDS ORDERED: NICOTINE PATCH REMOVAL TP SCH (08:59)
== END 2017-09-07 11:49 | disposition home or self-care (01) ==
LOC: EDUNIT# 23:16 → ER 23:18 → UNDOADMOB 09-04 01:24 → ICU 09-04 01:24 → 4TH 09-05 11:44 → ICU 09-05 11:44 → UNDODISOB 09-07 12:50
PROVIDERS: ADMIT Pediatrics; ATTEND Pediatrics
DX: F15.159 Other stimulant abuse with stimulant-induced psychotic disorder, unspecified (principal); F12.10 Cannabis abuse, uncomplicated; J44.9 Chronic obstructive pulmonary disease, unspecified; I10 Essential (primary) hypertension; Z59.0 Homelessness; Z79.899 Other long term (current) drug therapy; Z23 Encounter for immunization
CPT/HCPCS: 36415; 51702; 80048; 80053; 80306; 80320; 81000; 83735; 84100; 84443; 85025; 96361; 96372; 96374; G0378